=== PATIENT | male | born 1985 | race Caucasian/White ===

== ENCOUNTER → 2020-02-12 16:15 | Outpatient (CLI) | payer OTHER, SELFPAY ==
--- NOTE | 2020-02-12 16:28 | XR_ITS ---
PROCEDURE: XR MULTIPLE SPINE 6+V CLINICAL INDICATION: PAIN Mid and low back pain COMPARISON: No exams were available for comparison FINDINGS: Thoracic spine: 4 views: No fracture or dislocation. No lytic or blastic change. No significant degenerative change. Lumbar spine five views: Minimal lumbar curvature convex right. Mild facet hypertrophic changes are present on the left at L5-S1. There is mild degenerative disc disease at L5-S1. No fracture or dislocation. No lytic or blastic change. IMPRESSION: Negative thoracic spine Mild degenerative disc disease and left-sided facet arthritic change at L5-S1 of the lumbar spine No fracture or other acute anomaly Dictated by: Rehan Yeh MD 02/12/2020 17:05 Electronically signed by Rehan Yeh MD in [place] 02/12/2020 17:05
== END ==
PROVIDERS: PCP Family Medicine; Visit Provider Family Medicine
DX: M54.6 Pain in thoracic spine (principal); M54.5 Low back pain
CPT/HCPCS: 72084

== ENCOUNTER 2020-02-23 07:56 | Outpatient (RCR) | payer OTHER, SELFPAY ==
--- NOTE | 2020-02-23 09:05 | HMH.PTOPEV ---
PT Outpatient Evaluation Rehab PT Outpatient Evaluation Start: 02/23/20 08:47 Freq: Status: Active Protocol: Document 02/23/20 08:49 YOSELIN (Rec: 02/23/20 09:04 CLAUDIARICHARDSON [id number]) Electronically Signed By Fortino Shell, PT 02/23/20 08:49 Outpatient Therapy Subjective History Subjective History Patient is a 34 year old male presenting to outpatient PT with reports of chronic low back and throacic spine pain that has progressively gotten worse over the past 2 years. Pt reports intermittent radiating pain to B buttocks. No specific mechanism of injury to report. Most recent imaging indicates mild lumbar spine degenerative changes, negative thoracic spine. No comoribidities to report. Chief Complaint Pain,Stiff Symptom Type Sharp Symptoms Relieved By Rest/Positioning,Activity Symptoms Aggravated By Standing,Bending/Stooping, Walking,Lifting Prior Functional Limitations None Current Functional Limitations Lifting,Housework,Sleeping, Standing,Sitting,Squatting, Recreation Activity,Walking, Bending/Stooping Symptom Description Constant but Variable Level of pain today (0-10) 6 Pain scale - at its best (0-10) 3 Pain scale - at its worst (0-10) 8 Lumbopelvic Eval Posture Thoracic Spine Posture Standing Position Increased Kyphosis Lumbar Spine Posture Standing Position Neutral Assistive device Assistive Devices None / NA Palapation tenderness bilateral lumbar spinal tenderness Yes: L4/5 S1 3/4 paraspinal tenderness Yes: L 4/5 S1 3/4 Accessory Movement T-spine Vertebrae Accessory Movements [facility] [place] that [place]it Symptoms T10 bilateral T11 bilateral T12 bilateral L4 bilateral L5 bilateral S1 bilateral Range of Motion Lumbar Spine Active Flexion Range of 62 Motion (degrees) Lumbar Spine Active Extension Range of 15 Motion (degrees) Left Lumbar Spine Lateral Flexion Active 14 Range of Motion (degrees) Right Lumbar Spine Lateral Flexion 20 Active Range of Motion (degrees) Lumbar Spine ROM Limitations Soft Tissue Tightness,Bony Restrictio
== END 2020-02-23 07:59 | disposition home or self-care (01) ==
LOC: PT 07:56
PROVIDERS: PCP Family Medicine; Visit Provider Family Medicine
DX: M54.6 Pain in thoracic spine (principal); M54.5 Low back pain
CPT/HCPCS: 97163

== ENCOUNTER 2020-08-19 10:40 | Emergency (ER) | payer OTHER, SELFPAY ==
--- NOTE | 2020-08-19 10:35 | ECG_ITS ---
APPROVED REPORT Exam: Resting ECG HR:68 bpm ECG Measurements Heart Rate 68 AXES AK 160 P 48 QRSd 84 QRS 23 QT 378 T 41 QTc 401 Conclusion Normal sinus rhythm Normal ECG Electronically signed by : Yinka Boswell, 08/20/2020 10:33:56
[2020-08-19 10:41] VITALS: BP 128/88; PULSE 78; RESP 12; TEMP 36.9; O2SAT 95; BMI 27.1
--- NOTE | 2020-08-19 10:46 | XR_ITS ---
PROCEDURE: XR CHEST 2V CLINICAL HISTORY: pain COMPARISON: CR CXR1VP XR chest portable from 03/18/2018 CR XR CHEST 2V from 09/22/2019 FINDINGS: The cardiomediastinal silhouette and pulmonary vascularity are within normal limits. The lungs are clear without infiltrates, suspicious nodules, or pleural effusions. No acute bony abnormalities. IMPRESSION: No acute findings. Dictated by: Dr. Rafy Felton MD 08/19/2020 11:54 Dr. Rafy Felton MD in [place] 08/19/2020 11:54
--- NOTE | 2020-08-19 10:48 | HMH.EDGENADL ---
ED Disposition Clinical Impression: Chest pain Qualifiers: Chest pain type: other chest pain Qualified Code(s): R07.89 - Other chest pain Headache Qualifiers: Headache type: unspecified Headache chronicity pattern: acute headache Intractability: not intractable Qualified Code(s): R51.9 - Headache, unspecified Disposition: Home, Self-Care Condition on Discharge: Good Additional Instructions: Please continue taking [id number] medication such as Tylenol and ibuprofen for headache and follow-up with your PCP for further management. Also follow-up with your PCP in regards to chest pain. Immediate return if any new or worsening symptoms prior to that time. Referrals: PCP,No [Primary Care Provider] - - Critical Care Critical Care Time: No Attestation: On 08/19/20, the high probability of a clinically significant, sudden or life threatening deterioration of the following system(s) required my full and direct attention, intervention and personal management. The time I documented below is in addition to time spent performing reported procedures but includes the following listed in this critical care notation. Medical Decision Making - Medical Records Medical records reviewed: Yes: I reviewed the patient's medical records. - Marcelino Inquiry Pt receiving controlled substance: No Vital Signs: 08/19/20 10:41 08/19/20 11:54 08/19/20 12:30 Temperature 98.4 F Temperature Source Oral Pulse Rate [Left Radial] 78 72 67 Respiratory Rate 12 16 95 H Blood Pressure [Right Arm] 128/88 119/78 121/76 Blood Pressure Mean [Right Arm] 101 91 91 Blood Pressure Source [Right Arm] Automatic Cuff Automatic Cuff Automatic Cuff Blood Pressure Position [Right Arm] Sitting Sitting Sitting 02 Sat by Pulse Oximetry 95 96 97 Oxygen Delivery Method Room Air 08/19/20 14:02 08/19/20 14:47 Temperature Temperature Source Pulse Rate [Left Radial] 60 62 Respiratory Rate 20 18 Blood Pressure [Right Arm] 143/81 H 126/74 Blood Pressure Mean [Right Arm] 101 91 Blood Pressure Source [Right Arm] Automatic Cuff Automatic Cuff Blood Pressure Position [Right Arm] Supine Sitting 02 Sat by Pulse Oximetry 98 94 L Oxygen Delivery Method - Lab Data Lab Results 08/19/20 10:40: WBC 9.6, RBC 5.77, Hgb 18.2 H*, Hct 56.1 H, MCV 97.2 H, MCH 31.6 H, MCHC 32.5, RDW 13.4, Plt Count 319, MPV 9.0, Neut % (Auto) 66.7, Lymph % (Auto) 24.0, Mercer % (Auto) 5.6, Eos % (Auto) 3.0, Baso % (Auto) 0.7, Neut # (Auto) 6.4, Lymph # (Auto) 2.3, Mercer # (Auto) 0.5, Eos # (Auto) 0.3, Baso # (Auto) 0.1 08/19/20 10:40: Sodium 140, Potassium 3.8, Chloride 105, Carbon Dioxide 28, Anion Gap 10.8, BUN 15, Creatinine 1.10, Estimated Creat Clear 109, Estimated GFR 75, Est GFR ( Amer) 91, Glucose 101 H, Calcium 9.8, Troponin I < 0.01 08/19/20 13:50: Troponin I < 0.01 Result diagrams: 08/19/20 10:40 08/19/20 10:40 Orders (Tests/Meds): ED MEDICATIONS Discontinued Medications Generic Name Dose Route Start Last Admin Trade Name Sawyer PRN Reason Stop Dose Admin Acetaminophen 1,000 mg 08/19/20 13:36 08/19/20 13:37 Acetaminophen 500mg Tab PO 08/19/20 13:37 1,000 mg ONCE ONE Administration Ketorolac Tromethamine 30 mg 08/19/20 15:24 08/19/20 15:25 Ketorolac 30mg/Ml Vial IV 08/19/20 15:25 30 mg ONCE ONE Administration ORDERS Category Date Time Status Troponin I Q3H Lab 08/19/20 17:00 Ordered - ECG Data Tracing #1 ECG normal with no acute: arrhythmias, ischemia, conduction abnormalities, chamber hypertrophy Normal Sinus Rhythm: Yes Medical Decision Narrative: Patient 35-year-old male presenting with chest pain and headache. Chest pain is rather atypical and EKG demonstrates no acute ischemia or dysrhythmia noted. Atypical ACS on the differential so cardiac enzyme testing will be performed. Also patient with a vague headache. No red flag symptoms headache but a head CT scan will be obtained this is new onset over t
[2020-08-19 10:55] LABS: Basophils # 0.1 K/mm3 (0-0.2); Basophils % 0.7 % (0.1-2.0); Eosinophils # 0.3 K/mm3 (0.0-0.4); Hematocrit 56.1 % (42.0-52.0); Lymphocytes # 2.3 K/mm3 (0.7-4.5); Mean Corpuscular HGB Conc 32.5 g/dL (31.8-35.4); Mean Corpuscular Hemoglobin 31.6 pg (27.0-31.2); Mean Corpuscular Volume 97.2 fl (80-94); Monocytes # 0.5 K/mm3 (0.1-1.0); Monocytes % 5.6 % (1.7-9.3); Neutrophils # 6.4 K/mm3 (1.8-7.8); Neutrophils % 66.7 % (37.0-80.0); Platelet Count 319 K/mm3 (142-424); Red Blood Count 5.77 M/mm3 (4.60-6.20); Red Cell Distribution Width 13.4 % (11.5-17.5); White Blood Count 9.6 K/mm3 (4.8-10.8)
[2020-08-19 10:56] LABS: Chloride 105 mmol/L (98-107); Sodium 140 mmol/L (136-145)
[2020-08-19 10:57] LABS: Potassium 3.8 mmoL/L (3.5-5.1)
--- NOTE | 2020-08-19 10:58 | CT_ITS ---
PROCEDURE: CT HEAD/BRAIN WO CON CLINICAL INDICATION: new onset headache , some dizziness COMPARISON: No exams were available for comparison TECHNIQUE: Axial images obtained. All CT scans at the facility use one or more dose reduction, viz: automated exposure control, ma/kV adjustment per patient size (including targeted exams where dose is matched to indication, i.e. head), or iterative reconstruction technique. FINDINGS: No midline shift, mass effect, intracranial hemorrhage, hydrocephalus, or extra-axial fluid collection is evident. The calvarium has an unremarkable appearance. No mastoid effusion. Both internal auditory canals appear normal. There is mucoperiosteal thickening in the visualized portions of the maxillary sinuses bilaterally. . There are inflammatory changes of the ethmoid sinuses and there is mild mucoperiosteal thickening of the sphenoid sinus. Mild inflammatory changes are seen in the left frontal sinus. IMPRESSION: No acute intracranial finding findings of mild pansinusitis probably acute and chronic Dictated by: Dr. Rafy Felton MD 08/19/2020 11:29 Dr. Rafy Felton MD in [place] 08/19/2020 11:29
[2020-08-19 10:59] LABS: Blood Urea Nitrogen 15 mg/dl (9-20); Creatinine Clearance Estimated 109 mL/min (50-200); Estimated Glomerular Filt Rate 75 ml/min (>60); GFR (African American) 91 ML/MIN (>60)
[2020-08-19 11:00] LABS: Anion Gap 10.8 mEq/L (5-15); Calcium 9.8 mg/dl (8.4-10.2); Carbon Dioxide 28 mmol/L (22.0-30.0); Glucose 101 mg/dl (74-100)
[2020-08-19 11:29] LABS: Troponin I < 0.01 ng/ml (0.00-0.034)
[2020-08-19 11:44] LABS: Hemoglobin 18.2 g/dL (14.1-18.0)
[2020-08-19 11:54] VITALS: BP 119/78; PULSE 72; RESP 16; O2SAT 96
[2020-08-19 12:30] VITALS: BP 121/76; PULSE 67; RESP 18; O2SAT 97
--- NOTE | 2020-08-19 13:55 | PC.NURSE ---
2nd troponin sent to lab
[2020-08-19 14:02] VITALS: BP 143/81; PULSE 60; RESP 20; O2SAT 98
[2020-08-19 14:47] VITALS: BP 126/74; PULSE 62; RESP 18; O2SAT 94
--- NOTE | 2020-08-19 14:55 | PC.NURSE ---
Called lab to check results of 2nd troponin. Advised it had not been run yet and they would put it on now and it would be about 20 mins.
[2020-08-19 15:11] LABS: Troponin I < 0.01 ng/ml (0.00-0.034)
[2020-08-19 15:40] VITALS: BP 123/75; PULSE 58; RESP 18; TEMP 36.9; O2SAT 96
== END 2020-08-19 15:42 | disposition home or self-care (01) ==
PROVIDERS: Emergency Provider Emergency Medicine
DX: R07.89 Other chest pain (principal); Z88.0 Allergy status to penicillin; F17.210 Nicotine dependence, cigarettes, uncomplicated
CPT/HCPCS: 70450; 71046; 80048; 84484; 85025; 93005; 96374; 99283

== ENCOUNTER → 2020-12-26 08:03 | Outpatient (CLI) | payer OTHER, SELFPAY ==
--- NOTE | 2020-12-26 08:04 | MR_ITS ---
PROCEDURE: MR LUMBAR SPINE WO CON CLINICAL INDICATION: back pain DDD Lbp xyrs. Pain when bending. When sitting for too long, patient states hard time standing up. COMPARISON: CR XR MULTIPLE SPINE 6+V from 02/12/2020 TECHNIQUE: Standard multiplanar multiecho sequences are performed without contrast. 3-D MIP and myelographic images are also rendered and reviewed FINDINGS: Normal alignment. The spinal cord ends at the L1-L2 level. L1-L2: Unremarkable. L2-L3: Unremarkable. L3-L4: Minimal bulging disc L4-5: Unremarkable. L5-S1: Degenerative disc disease with bulging disc eccentric toward the left along with facet and ligamentum hypertrophy causing moderate right foraminal narrowing and severe left-sided foraminal narrowing with some impingement upon the exiting L5 nerve roots at the neural foramina left greater than right. Mild type 2 discogenic changes on the left. There is mild retrolisthesis of L5 of 3 mm. Endplate hypertrophic changes are also present associated with the bulging disc. IMPRESSION: 1. Degenerative disc disease at L5-S1 with bulging disc eccentric toward the left along with facet and ligamentum hypertrophy causing moderate right foraminal narrowing and severe left-sided foraminal narrowing with some impingement upon the exiting L5 nerve roots at the neural foramina left greater than right. Mild type 2 discogenic changes on the left. There is mild retrolisthesis of L5 of 3 mm. Endplate hypertrophic changes are also present associated with the bulging disc 2. No extruded herniated disc or canal stenosis Dictated by: Rehan Yeh MD 12/28/2020 08:56 Rehan Yeh MD in [place] 12/28/2020 08:56
== END ==
PROVIDERS: PCP Emergency Medicine; Visit Provider Emergency Medicine
DX: M51.36 Other intervertebral disc degeneration, lumbar region (principal)
CPT/HCPCS: 72148; 76376

== ENCOUNTER → 2021-02-23 14:18 | Outpatient (POV) | payer OTHER, SELFPAY ==
[2021-02-23 14:53] VITALS: BP 125/92; PULSE 96; RESP 20; O2SAT 95; BMI 28.0
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
== END ==
PROVIDERS: PCP Emergency Medicine; Visit Provider Clinical Nurse Specialist Family Health
DX: M47.896 Other spondylosis, lumbar region (principal); M54.16 Radiculopathy, lumbar region
CPT/HCPCS: 99202; G0463

== ENCOUNTER → 2021-06-16 12:16 | Outpatient (CLI) | payer OTHER, SELFPAY ==
--- NOTE | 2021-06-16 12:22 | XR_ITS ---
PROCEDURE: XR HAND RT MIN 3V CLINICAL INDICATION: hand pain COMPARISON: No exams were available for comparison FINDINGS: No fracture or dislocation. No lytic or blastic change. There is normal mineralization. The joint spaces are well-preserved. No significant degenerative/arthritic changes. No erosive changes evident. Other findings:None. IMPRESSION: No acute findings. Dictated by: Dr. Rafy Felton MD 06/16/2021 13:14 Dr. Rafy Felton MD in [place] 06/16/2021 13:14
== END ==
PROVIDERS: PCP Emergency Medicine; Visit Provider Emergency Medicine
DX: M79.644 Pain in right finger(s) (principal)
CPT/HCPCS: 73130

== ENCOUNTER → 2021-06-22 10:48 | Outpatient (POV) | payer OTHER, SELFPAY ==
[2021-06-22 10:57] VITALS: BP 119/88; PULSE 85; RESP 18; O2SAT 97; BMI 28.8
--- NOTE | 2021-06-22 11:14 | HMH.PAINSOAP ---
[facility] Pain Management SOAP Note Subjective:: Patient is a 36-year-old white male who presents today for follow-up. Patient is being treated in the clinic for degenerative disc disease lumbar spine with lumbar radiculopathy symptoms. At last visit, we did schedule the patient for a lumbar epidural steroid injection L5-S1. Unfortunately, the patient did cancel the appointment. He was also started on amitriptyline. Patient says he did not tolerate the medication and has stopped taking this medication. The patient is having low back pain with radiation into his bilateral lower extremities. He is now having neck pressure and pain as well. He is having numbness and tingling intermittently in his arms and hands as well as his bilateral lower extremities. Patient says when shopping, he is able to stand for approximately 30 minutes maximum before developing severe pain. He is also having bilateral knee pain and joint pain. He feels that much of his pain in his joints is contributed to arthritis. 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 We did discuss Celebrex which she would like to try. Patient says standing or sitting for prolonged periods worsen his pain. Lying flat does give him significant relief. He does rate his pain at a 6 out of 10 today. He has tried physical therapy for more than 6 weeks and continues with home stretching and anti-inflammatories. He has not had any type of injective therapy. Review of Systems General: No recent weight changes, no fever, no sleep disturbances Respiratory: No cough, no shortness of air, no recurring pulmonary infections Cardiovascular/peripheral vascular: No chest pain, no palpitations, no edema, no shortness of breath Gastrointestinal: No new onset incontinence, normal bowel movements reported Genitourinary: No new onset incontinence Musculoskeletal: Low back pain with radiation into bilateral lower extremities with intermittent numbness and tingling, neck pressure and pain with radiation into bilateral upper extremities with intermittent numbness and tingling Psychiatric: [Normal mood/affect] Neurological: [Denies weakness in extremities], [denies balance issues] Objective:: Physical exam General: Alert and oriented x3, no acute distress, pleasant and cooperative Lungs: Respirations even and unlabored, symmetrical chest expansion Eyes: PERRL Musculoskeletal: Flexion and extension of cervical and lumbar [spine] somewhat guarded secondary to pain, [antalgic gait noted] Neurological: Speech clear, no gross sensory deficit Assessment:: Degenerative disc disease lumbar spine with lumbar radiculopathy symptoms Plan:: Patient and I discussed the epidural in great detail again today. At last visit he was scheduled for an epidural steroid injection at L5-S1 and did cancel that appointment. We will schedule him for the lumbar epidural steroid injection at L5-S1, # 1 injection. We will also change him from meloxicam to Celebrex 200 mg 1 tablet p.o. daily. We will see if this helps with his joint pain. He is not on any anticoagulation therapy. We will see him back after his appointment for reevaluation symptoms. Possible side effects of corticosteroids have been discussed with the patient. Risks and benefits of the procedure have been explained to the patient. Patient would like to proceed with the procedure. Patient has been instructed to contact the clinic with any concerns before the next appointment. Dr. Mendez has reviewed this note and agrees with this plan of care. This note was dictated using voice recognition software and make contain errors or omissions. [facility] History I have reviewed the patient's past medical history: Yes Medical History: Denies:: Cancer, Diabetes Mellitus Type 1, Diabetes Mellitus Type 2, MRSA *Have you ever received a pneumonia vaccine?: No *Have you received a flu vaccine this season?: No Other Medical History: Reports: Arthriti
== END ==
PROVIDERS: Visit Provider Clinical Nurse Specialist Family Health
DX: M51.16 Intervertebral disc disorders with radiculopathy, lumbar region (principal)
CPT/HCPCS: 99212; G0463

== ENCOUNTER → 2021-08-16 07:46 | Outpatient (CLI) | payer OTHER, SELFPAY ==
--- NOTE | 2021-08-16 07:54 | XR_ITS ---
PROCEDURE: XR ANKLE WT BEARING LT MIN 3V CLINICAL INDICATION: L Ankle Pain COMPARISON: No exams were available for comparison FINDINGS: There is an oblique lucency along the posterior aspect of the talus on the lateral view. This could be caused by a Mach line from the fibula. A nondisplaced fracture is not excluded. CT may provide further evaluation if there is focal pain at this area. IMPRESSION: Possible nondisplaced fracture of the posterior talus versus Mach line. Dictated by: Rehan Yeh MD 08/16/2021 16:36 Rehan Yeh MD in [place] 08/16/2021 16:36
[2021-08-16 07:59] LABS: Basophils # 0.1 K/mm3 (0-0.2); Basophils % 0.7 % (0.1-2.0); Eosinophils # 0.4 K/mm3 (0.0-0.4); Hematocrit 50.3 % (42.0-52.0); Hemoglobin 16.8 g/dL (14.1-18.0); Lymphocytes % 20.8 % (10-50); Mean Corpuscular HGB Conc 33.4 g/dL (31.8-35.4); Mean Corpuscular Hemoglobin 31.5 pg (27.0-31.2); Mean Corpuscular Volume 94.4 fl (80-94); Mean Platelet Volume 7.7 fl (7.4-10.4); Monocytes # 0.5 K/mm3 (0.1-1.0); Monocytes % 5.6 % (1.7-9.3); Neutrophils # 6.6 K/mm3 (1.8-7.8); Neutrophils % 68.9 % (37.0-80.0); Platelet Count 306 K/mm3 (142-424); Red Blood Count 5.32 M/mm3 (4.60-6.20); Red Cell Distribution Width 13.6 % (11.5-17.5); White Blood Count 9.6 K/mm3 (4.8-10.8)
[2021-08-16 10:06] LABS: 25-OH Vitamin D, Total 28.1 ng/mL (30-100)
[2021-08-16 10:31] LABS: Alanine Aminotransferase 28 U/L (12-78); Albumin Level 4.3 g/dl (3.5-5.0); Albumin/Globulin Ratio 1.5 (1.1-1.8); Alkaline Phosphatase 68 U/L (38-126); Anion Gap 10.5 mEq/L (5-15); Aspartate Amino Transferase 22 U/L (17-59); Bilirubin,Total 0.3 mg/dl (0.2-1.3); Blood Urea Nitrogen 12 mg/dl (9-20); Calcium 9.6 mg/dl (8.4-10.2); Carbon Dioxide 27 mmol/L (22.0-30.0); Chloride 107 mmol/L (98-107); Chol/HDL Ratio 5.6 (1-3.5); Cholesterol 212 mg/dl (140-200); Estimated Glomerular Filt Rate 84 ml/min (>60); GFR (African American) 101 ML/MIN (>60); Globulin 2.8 g/dL (1.3-3.2); Glucose 95 mg/dl (74-100); HDL Cholesterol 38 mg/dl (40-60); Potassium 4.5 mmoL/L (3.5-5.1); Sodium 140 mmol/L (136-145); Total Protein,Serum 7.1 g/dl (6.3-8.2); Triglycerides 113 mg/dl (30-150); VLDL Cholesterol 23 mg/dL (0-40)
[2021-08-16 10:42] LABS: Direct LDL Cholesterol 160.79 mg/dL (100-129)
[2021-08-16 10:48] LABS: T4 (Thyroxine) 10.8 ug/dl (5.53-11.0)
[2021-08-16 11:02] LABS: Thyroid Stimulating Hormone 1.44 uIU/mL (0.465-4.68)
== END ==
PROVIDERS: Visit Provider Nurse Practitioner Family
DX: M19.90 Unspecified osteoarthritis, unspecified site (principal); M25.572 Pain in left ankle and joints of left foot; E55.9 Vitamin D deficiency, unspecified
CPT/HCPCS: 36415; 73610; 80053; 80061; 82306; 84436; 84443; 85025

== ENCOUNTER → 2021-09-01 06:56 | Outpatient (CLI) | payer OTHER, SELFPAY ==
--- NOTE | 2021-09-01 06:57 | CT_ITS ---
PROCEDURE INFORMATION: Exam: CT Left Lower Extremity Without Contrast, Ankle Exam date and time: 09/01/2021 6:57 AM Age: 36 years old Clinical indication: Pain; Ankle; Left; Additional info: Fracture evaluation TECHNIQUE: Imaging protocol: CT of the Left lower extremity without contrast was performed. Exam focused on the ankle. Radiation optimization: All CT scans at this facility use at least one of these dose optimization techniques: automated exposure control; mA and/or kV adjustment per patient size (includes targeted exams where dose is matched to clinical indication); or iterative reconstruction. COMPARISON: CR XR ANKLE WT BEARING LT MIN 3V 08/16/2021 7:59 AM FINDINGS: Bones/joints: A 2 x 3 mm avulsion fracture fragment is present adjacent to the talus in the expected location of the anterior talofibular ligament (series 2/image 219). This small fracture fragment is age indeterminate. There is no fracture involving the posterior talus where a lucency on prior radiographs was artifactual. Tiny osteophytes are present along the anterolateral talus and corresponding level of the fibula suggesting remote low-grade injury to the anterior inferior tibiofibular ligament (series 602/image 21). A benign bone island is incidentally noted in the cuboid. Soft tissues: Moderate soft tissue edema involves the lateral ankle. IMPRESSION: 1. Avulsion fracture involving the talus in the region of the anterior talofibular ligament attachment. 2. No fracture involving the posterior talus where artifact was present on prior radiographs. 3. Remote low-grade injury to the anterior inferior tibiofibular ligament suggested by small marginal osteophytes.
== END ==
PROVIDERS: PCP Nurse Practitioner Family; Visit Provider Podiatrist
DX: M25.572 Pain in left ankle and joints of left foot (principal); S92.102A Unspecified fracture of left talus, initial encounter for closed fracture; T14.8XXA Other injury of unspecified body region, initial encounter
CPT/HCPCS: 73700

== ENCOUNTER → 2021-10-05 15:10 | Outpatient (CLI) | payer OTHER, SELFPAY | PROVIDERS: Visit Provider Nurse Practitioner | DX: Z20.822 Contact with and (suspected) exposure to COVID-19 (principal) | CPT/HCPCS: C9803; U0003; U0005 ==

== ENCOUNTER → 2021-12-27 09:29 | Outpatient (CLI) | payer OTHER, SELFPAY ==
[2021-12-27 18:45] LABS: Amphetamine/Metha Screen,Urine Negative ng/ml (<1000); Barbiturates Screen,Urine Negative ng/ml (<200)
[2021-12-27 18:46] LABS: Benzodiazepines Screen,Urine Negative ng/ml (<200)
[2021-12-27 18:47] LABS: Cannabinoid Screen,Urine Negative ng/ml (<50)
[2021-12-27 18:48] LABS: Cocaine Screen,Urine Negative ng/ml (<300)
[2021-12-27 18:49] LABS: Methadone Screen,Urine Negative ng/ml (<300); Opiate Screen,Urine Positive ng/ml (<300)
[2021-12-27 18:51] LABS: Phencyclidine Screen,Urine Negative ng/ml (<25)
== END ==
PROVIDERS: Visit Provider Emergency Medicine
DX: M54.9 Dorsalgia, unspecified (principal); G89.29 Other chronic pain
CPT/HCPCS: 80305

== ENCOUNTER → 2022-01-04 08:40 | Outpatient (POV) | payer OTHER, SELFPAY ==
[2022-01-04 09:02] VITALS: BP 149/98; PULSE 66; RESP 18; TEMP 36.8; O2SAT 96; BMI 68.3
--- NOTE | 2022-01-04 10:30 | HMH.PAINSOAP ---
[facility] Pain Management SOAP Note Subjective:: Patient is a pleasant 36-year-old male who presents today for follow-up. We are currently treating this patient for degenerative disc disease of lumbar spine with lumbar radiculopathy symptoms, spinal stenosis with neurogenic claudication, bilateral hip pain. We have not seen this patient since June 2021. He states that he has significant low back pain that radiates to bilateral lower extremities. He cannot tolerate any prolonged sitting, standing, and walking. He has to lean forward whenever he shops around the grocery store. When we last saw this patient, we started him on Celebrex 200 mg daily. We also scheduled the patient for a lumbar epidural steroid injection. He said that he had to cancel that injection because he does not like injections. Since we last saw him, he has tried physical therapy with no relief of symptoms. He has also gone to neurosurgery for consult. He was told that he could get surgery on his back but because he is young and he has a young kids, he might have to go back for a revision in 1-2 years. He is currently being managed with gabapentin 300 mg 3 times a day and [place] 5 mg twice a day by Dr. Ledezma. He states that these medications are taking some of the edge off but not helping the family. Rates his pain today as 8 out of 10. He presents today to see if he can schedule a lumbar epidural steroid injection. [facility] #[id number] with an active morphine equivalent of 10. Review of Systems: General: No recent weight changes, no fever, no sleep disturbances Respiratory: No cough, no shortness of air, no recurring pulmonary infections Cardiovascular/peripheral vascular: No chest pain, no palpitations, no edema, no shortness of breath Gastrointestinal: No new onset incontinence, normal bowel movements reported Genitourinary: No new onset incontinence Musculoskeletal: Low back pain Psychiatric: [Normal mood/affect] Neurological: [Denies weakness in extremities], [denies balance issues] Objective:: Physical Exam: General: Alert and oriented x3, no acute distress, pleasant and cooperative, [on room air] Lungs: Respirations even and unlabored, symmetrical chest expansion Eyes: PERRL Musculoskeletal: Flexion and extension of lumbar [spine] somewhat guarded secondary to pain, [antalgic gait noted] Neurological: Speech clear, no gross sensory deficit Assessment:: Degenerative disc disease of lumbar spine with lumbar radiculopathy symptoms Spinal stenosis with neurogenic claudication Plan:: IMAGING: COMPARISON: CR XR MULTIPLE SPINE 6+V from 02/12/2020 TECHNIQUE: Standard multiplanar multiecho sequences are performed without contrast. 3-D MIP and myelographic images are also rendered and reviewed FINDINGS: Normal alignment. The spinal cord ends at the L1-L2 level. L1-L2: Unremarkable. L2-L3: Unremarkable. L3-L4: Minimal bulging disc L4-5: Unremarkable. L5-S1: Degenerative disc disease with bulging disc eccentric toward the left along with facet and ligamentum hypertrophy causing moderate right foraminal narrowing and severe left-sided foraminal narrowing with some impingement upon the exiting L5 nerve roots at the neural foramina left greater than right. Mild type 2 discogenic changes on the left. There is mild retrolisthesis of L5 of 3 mm. Endplate hypertrophic changes are also present associated with the bulging disc. IMPRESSION: 1. Degenerative disc disease at L5-S1 with bulging disc eccentric toward the left along with facet and ligamentum hypertrophy causing moderate right foraminal narrowing and severe left-sided foraminal narrowing with some impingement upon the exiting L5 nerve roots at the neural foramina left greater than right. Mild type 2 discogenic changes on the left. There is mild retrolisthesis of L5 of 3 mm. Endplate hypertrophic changes are also present associated with the bulging disc 2. No extruded herniated
== END ==
PROVIDERS: Visit Provider Student in an Organized Health Care Education/Training Program
DX: M51.16 Intervertebral disc disorders with radiculopathy, lumbar region (principal); M48.00 Spinal stenosis, site unspecified; I73.9 Peripheral vascular disease, unspecified
CPT/HCPCS: 99212; G0463

== ENCOUNTER → 2022-01-04 09:19 | Outpatient (CLI) | payer OTHER, SELFPAY ==
[2022-01-04 10:18] LABS: Chloride 107 mmol/L (98-107); Potassium 4.2 mmoL/L (3.5-5.1); Sodium 140 mmol/L (136-145)
[2022-01-04 10:21] LABS: Alanine Aminotransferase 37 U/L (12-78); Albumin Level 4.1 g/dl (3.5-5.0); Albumin/Globulin Ratio 1.5 (1.1-1.8); Alkaline Phosphatase 71 U/L (38-126); Anion Gap 10.2 mEq/L (5-15); Aspartate Amino Transferase 25 U/L (17-59); Bilirubin,Total 0.4 mg/dl (0.2-1.3); Blood Urea Nitrogen 9 mg/dl (9-20); Calcium 9.6 mg/dl (8.4-10.2); Carbon Dioxide 27 mmol/L (22.0-30.0); Estimated Glomerular Filt Rate 94 ml/min (>60); GFR (African American) 114 ML/MIN (>60); Globulin 2.7 g/dL (1.3-3.2); Glucose 100 mg/dl (74-100); Total Protein,Serum 6.8 g/dl (6.3-8.2)
[2022-01-04 10:27] LABS: C-Reactive Protein 2.3 mg/L (0-4)
[2022-01-04 10:55] LABS: Basophils # 0.1 K/mm3 (0-0.2); Basophils % 0.8 % (0.1-2.0); Eosinophils # 0.5 K/mm3 (0.0-0.4); Eosinophils % 5.5 % (0.1-12.0); Hematocrit 51.3 % (42.0-52.0); Hemoglobin 16.6 g/dL (14.1-18.0); Lymphocytes % 20.5 % (10-50); Mean Corpuscular HGB Conc 32.4 g/dL (31.8-35.4); Mean Corpuscular Hemoglobin 31.1 pg (27.0-31.2); Mean Corpuscular Volume 96.1 fl (80-94); Mean Platelet Volume 7.7 fl (7.4-10.4); Monocytes # 0.7 K/mm3 (0.1-1.0); Monocytes % 6.9 % (1.7-9.3); Neutrophils # 6.4 K/mm3 (1.8-7.8); Neutrophils % 66.3 % (37.0-80.0); Platelet Count 299 K/mm3 (142-424); Red Blood Count 5.34 M/mm3 (4.60-6.20); Red Cell Distribution Width 13.4 % (11.5-17.5); White Blood Count 9.7 K/mm3 (4.8-10.8)
[2022-01-04 13:40] LABS: Erythrocyte Sedimentation Rate 8 mm/hr (0-15)
[2022-01-05 08:17] LABS: RA Latex Turbid. <10.0 IU/mL (<14.0)
[2022-01-05 14:13] LABS: Anti-Centromere B Antibodies <0.2 AI (0.0-0.9); Anti-DNA (DS) Ab Qn <1 IU/mL (0-9); Anti-Jo-1 <0.2 AI (0.0-0.9); Anti-Smith Antibody <0.2 AI (0.0-0.9); Antichromatin Antibodies <0.2 AI (0.0-0.9); Antiscleroderma-70 Antibodies <0.2 AI (0.0-0.9); RNP Antibodies <0.2 AI (0.0-0.9); Sjogren's Anti-SS-A <0.2 AI (0.0-0.9); Sjogren's Anti-SS-B <0.2 AI (0.0-0.9)
[2022-01-05 23:19] LABS: Lupus Reflex Interpretation Comment: (.); PTT-LA 37.7 sec (0.0-51.9); dRVVT 46.5 sec (0.0-47.0)
[2022-01-06 02:43] LABS: Anti-Cyclic Citrullinated Pept 4 units (0-19)
== END ==
PROVIDERS: Visit Provider Emergency Medicine
DX: M54.16 Radiculopathy, lumbar region (principal); G89.29 Other chronic pain; F17.209 Nicotine dependence, unspecified, with unspecified nicotine-induced disorders
CPT/HCPCS: 36415; 80053; 85025; 85613; 85651; 86140; 86200; 86225; 86235; 86431

== ENCOUNTER 2022-01-26 10:35 | Day surgery (SDC) | payer OTHER, SELFPAY ==
[2022-01-26 10:42] VITALS: BP 127/80; BP 130/82; BP 133/87; PULSE 81; PULSE 85; PULSE 92; RESP 18; TEMP 36.9; O2SAT 94; O2SAT 95; O2SAT 96; BMI 31.0
--- NOTE | 2022-01-26 10:52 | HMH.PMPROC ---
- Procedure Date: 01/26/22 Time: 10:52 Anesthesiologist:: Slade Hammer CRNA Complications:: None Pre-procedure Diagnosis:: Degenerative disc disease bar spine. Lumbar radicular symptoms. Lumbar spinal stenosis. Post-procedure Diagnosis:: Same Indications for Procedure:: This patient is a pleasant 36-year-old male who presents to our injection clinic today for his initial lumbar epidural steroid injection at the L5-S1 level. Patient describes his low back pain is constant, dull, aching. Pain increases when standing for any length of time. Patient also complains of bilateral hip and leg radicular symptoms at times. Procedure Details:: Procedure: Lumbar epidural steroid injection under fluoroscopy Informed consent was obtained and the risks and benefits of the procedure were explained to the patient. The patient was taken to the procedure room and noninvasive monitors placed, including noninvasive blood pressure cuff and pulse oximeter. The back was viewed using C-arm Fluoroscopy and prepped using Betadine as a cleansing solution and the L5-S1 interspace was palpated. Skin and subcutaneous tissues were anesthetized using lidocaine 1.5% and a 25-gauge needle. After this, an 18-gauge Touhy epidural needle was placed into the L5-S1 interspace and advanced using fluoroscopic guidance and loss of resistance to air until the epidural space was encountered. After confirmation of needle placement in the epidural space, with dye, a solution containing lidocaine 1.5%, 4 mL and Depo-Medrol 80 mg were incrementally injected into the lumbar epidural space. The patient tolerated the procedure well with no complications. The patient was observed in the Pain Clinic and then discharged home neurologically intact. Plan and Disposition:: Patient was discharged without incident.
[2022-01-26 11:05] VITALS: BP 124/89; PULSE 87; RESP 20; O2SAT 97
== END 2022-01-26 11:05 | disposition home or self-care (01) ==
LOC: SC.PAINP 10:36
PROVIDERS: PCP Emergency Medicine; Visit Provider Nurse Anesthetist, Certified Registered
DX: M51.16 Intervertebral disc disorders with radiculopathy, lumbar region (principal); M48.061 Spinal stenosis, lumbar region without neurogenic claudication; M19.90 Unspecified osteoarthritis, unspecified site; Z88.0 Allergy status to penicillin
CPT/HCPCS: 62323; J1040

== ENCOUNTER → 2022-02-20 10:49 | Outpatient (POV) | payer OTHER, SELFPAY ==
[2022-02-20 11:15] VITALS: BP 142/77; PULSE 65; RESP 18; TEMP 36.8; O2SAT 95; BMI 31.0
--- NOTE | 2022-02-20 11:35 | HMH.PAINSOAP ---
[facility] Pain Management SOAP Note Subjective:: Patient is a pleasant 36-year-old male who returns our clinic after receiving a lumbar epidural steroid injection at the L5-S1 level. Patient reports 1 to 3 days of moderate improvement terms of his low back symptoms. Patient describes his low back pain is constant, dull, aching. Pain increases for 2 to 3 days after strenuous activity like mowing the yard. He rates his pain today 6/10. I discussed in detail with the patient regarding a second injection. He will think about this and get back to us. He currently takes Celebrex 200 mg 1 p.o. daily. Also 300 mg gabapentin 3 times daily and [place] 5 mg twice daily from his PCP. Patient's Marcelino #[id number] has been reviewed and appropriate. Objective:: Patient is awake alert [place] x3. In no acute distress. Flexion-extension lumbar spine somewhat guarded secondary to pain. Deep tendon reflexes upper and lower extremities normal. Motor strength upper and lower extremities normal. There is no gross sensory deficit. Gait is normal. Assessment:: Degenerative disc disease lumbar spine. Lumbar radiculopathy symptoms. Plan:: Patient will reach out to us in the event he wants to attempt a second lumbar epidural steroid injection. I discussed in detail with him the benefit of having 2 injections for efficacy. Otherwise he will continue with his current medication management by PCP. [facility] History Medical History: Denies:: Cancer, Diabetes Mellitus Type 1, Diabetes Mellitus Type 2, MRSA *Have you ever received a pneumonia vaccine?: No *Have you received a flu vaccine this season?: No Other Medical History: Reports: Arthritis Other Surgeries: Yes: No Previous Surgery Amputation: No Fractures: No - *Social History Smoking Status: Current every day smoker Tobacco Type: cigarettes # Packs/Day (cigarettes): 1 Alcohol Intake: never Substance Use Type: denies use *Occupational Status:: other Housing: house Household Members: spouse *Travel in the last 8 weeks: None Family Hx:: Cancer, Heart Attack, Hypertension
== END ==
PROVIDERS: Visit Provider Nurse Anesthetist, Certified Registered
DX: M51.16 Intervertebral disc disorders with radiculopathy, lumbar region (principal); M19.90 Unspecified osteoarthritis, unspecified site; Z72.0 Tobacco use
CPT/HCPCS: 99212; G0463

== ENCOUNTER → 2022-03-08 07:08 | Outpatient (CLI) | payer OTHER, SELFPAY ==
[2022-03-07 17:41] LABS: Amphetamine/Metha Screen,Urine Negative ng/ml (<1000)
[2022-03-07 17:42] LABS: Barbiturates Screen,Urine Negative ng/ml (<200); Benzodiazepines Screen,Urine Negative ng/ml (<200)
[2022-03-07 17:43] LABS: Cannabinoid Screen,Urine Negative ng/ml (<50); Cocaine Screen,Urine Negative ng/ml (<300)
[2022-03-07 17:44] LABS: Methadone Screen,Urine Negative ng/ml (<300)
[2022-03-07 17:45] LABS: Opiate Screen,Urine Positive ng/ml (<300); Phencyclidine Screen,Urine Negative ng/ml (<25)
== END ==
PROVIDERS: PCP Emergency Medicine; Visit Provider Emergency Medicine
DX: M51.36 Other intervertebral disc degeneration, lumbar region (principal)
CPT/HCPCS: 80305

== ENCOUNTER 2022-04-17 10:04 | Emergency (ER) | payer OTHER, SELFPAY ==
--- NOTE | 2022-04-17 10:34 | HMH.EDUTC ---
[facility] Disposition Clinical Impression: Sinusitis Qualifiers: Sinusitis location: unspecified location Chronicity: acute Recurrence: non-recurrent Qualified Code(s): J01.90 - Acute sinusitis, unspecified Disposition: Home, Self-Care Condition on Discharge: Good Instructions: DI for Sinusitis Additional Instructions: Drink plenty of fluids. Take tylenol or ibuprofen for pain or fever. Take the medications as directed. Follow up with your regular doctor. GO TO THE ER FOR ANY WORSENING SYMPTOMS Quarantine until you know the results of your covid-19 test. Notify your school or workplace of your results and follow their instructions regarding return to work/school. Prescriptions: Benzonatate [Benzonatate 100mg cap] 100 mg PO TIDP PRN #30 cap PRN Reason: Cough Transmission Status: Received by [facility] # methylPREDNISolone [Medrol] 4 mg PO DIRECTED 6 Days #21 packet Transmission Status: Received by [facility] # RX: Azithromycin [Z-Mynor 250mg Tab*] 250 mg PO UD DOSE PK #6 tab Transmission Status: Received by [facility] # Referrals: Iain Ledezma MD [Primary Care Provider] - Time of Disposition: 11:01 Medical Decision Making - Medical Records Medical records reviewed: No: I reviewed the patient's medical records. - Marcelino Inquiry Pt receiving controlled substance: No Vital Signs: 04/17/22 10:43 Temperature 98.8 F Temperature Source Oral Pulse Rate [Left] 100 H Respiratory Rate 17 Blood Pressure [Right Arm] 131/77 Blood Pressure Mean [Right Arm] 95 02 Sat by Pulse Oximetry 97 Orders (Tests/Meds): ORDERS Category Date Time Status Covid-19 Nasal PCR ([facility]) Routine Lab 04/17/22 10:34 Received [facility] HPI - General Stated complaint: congestion Time Seen by Provider: 04/17/22 10:34 - History of Present Illness Provider Complaint: He states that for the past 3 days he has had sinus congestion, bilateral ear pain, nonproductive cough and he has had felt achy and bad. He denies any known covid exposure. - Related Data Home Medications Medication Instructions Recorded Confirmed RX: Diclofenac Sodium [Voltaren 2 g TP QID 02/23/21 03/07/22 Arthritis Pain] RX: Lidocaine [Lidocaine 5% patch] 1 patch TP DAILY 02/23/21 03/07/22 RX: Celecoxib 200 mg PO DAILY 01/04/22 03/07/22 RX: Ergocalciferol (Vitamin D2) 50,000 unit PO QWEEK 01/04/22 03/07/22 [Drisdol] oxcarbazepine 300 mg tablet 300 mg PO BID tab 03/07/22 03/07/22 Previous Rx's Medication Instructions Recorded clonazepam 0.5 mg tablet 0.5 mg PO BID PRN #60 tab 05/30/21 tramadol 50 mg tablet 50 mg PO TID PRN #90 tab 08/15/21 gabapentin 600 mg tablet 600 mg PO TID #90 tab 03/07/22 hydrocodone 5 mg-acetaminophen 325 1 tab PO BID #60 tab 03/07/22 mg tablet Benzonatate [Benzonatate 100mg 100 mg PO TIDP PRN #30 cap 04/17/22 cap] RX: Azithromycin [Z-Mynor 250mg Tab*] 250 mg PO UD DOSE PK #6 tab 04/17/22 methylPREDNISolone [Medrol] 4 mg PO DIRECTED 6 Days #21 04/17/22 packet Allergies Allergy/AdvReac Type Severity Reaction Status Date / Time Penicillins [PENICILLINS] Allergy Unknown Verified 04/17/22 10:45 [facility] History - Hepatitis A Screen Attestation statement:: This patient has been screened for Hepatitis A risk factors. I have reviewed the patient's past medical history: Yes Medical History: Denies:: Cancer, Diabetes Mellitus Type 1, Diabetes Mellitus Type 2, MRSA Other Medical History: Reports: Arthritis Other Surgeries: Yes: No Previous Surgery Amputation: No Fractures: No - Social History Smoking Status: Current every day smoker Tobacco Type: cigarettes # Packs/Day (cigarettes): 1 Alcohol Intake: never Substance Use Type: denies use Occupational Status: other Housing: house Household Members: spouse Family Hx:: Cancer, Heart Attack, Hypertension ROS Obtained: Yes All systems reviewed & no additional complaints - Con
[2022-04-17 10:43] VITALS: BP 131/77; PULSE 100; RESP 17; TEMP 37.1; O2SAT 97; BMI 31.3
[2022-04-17 11:13] VITALS: BP 131/77; PULSE 100; RESP 17; TEMP 37.1
== END 2022-04-17 11:14 | disposition home or self-care (01) ==
PROVIDERS: Emergency Provider Nurse Practitioner Family; PCP Emergency Medicine
DX: J01.90 Acute sinusitis, unspecified (principal)
CPT/HCPCS: 99212; C9803; G0463; U0003; U0005

== ENCOUNTER → 2023-04-25 08:49 | Outpatient (POV) | payer BC, OTHER, SELFPAY ==
--- NOTE | 2023-04-25 08:55 | EXP.PAIN.SOA ---
[facility] Pain Management SOAP Note Subjective:: Patient is a pleasant 38-year-old male who presents today for follow-up. We are currently treating the patient for degenerative disc disease of lumbar spine with lumbar radiculopathy symptoms, lumbar facet arthropathy, ligamentum flavum hypertrophy. Today he rates his pain an 8 out of 10. Patient denies any new trauma or injury since his last visit. He states that he continues to have significant pain in his low back with occasional pain into his lower extremities. Patient does state this is an aching, throbbing sensation with worsening pain with increased activity such as bending, twisting or lifting. He does state that the pain interferes with his ability perform activities of daily living such as cooking or cleaning and that it is affecting his sleeping. Patient was previously on Celebrex 200 mg once a day from our office however that he has not had this prescription for some time. Patient states he does have a history of schizophrenia and is on medication. Patient's Marcelino is [phone]. Its been reviewed and appropriate. Review of Systems: General: No recent weight changes, no fever, no sleep disturbances Respiratory: No cough, no shortness of air, no recurring pulmonary infections Cardiovascular/peripheral vascular: No chest pain, no palpitations, no edema, no shortness of breath Gastrointestinal: No new onset incontinence, normal bowel movements reported Genitourinary: No new onset incontinence Musculoskeletal: Low back pain Psychiatric: [Normal mood/affect] Neurological: [Denies weakness in extremities], [denies balance issues] Objective:: Physical Exam: General: Alert and oriented x3, no acute distress, pleasant and cooperative Lungs: Respirations even and unlabored, symmetrical chest expansion Eyes: PERRL Musculoskeletal: Flexion and extension of lumbar [spine] somewhat guarded secondary to pain, [antalgic gait noted] Neurological: Speech clear, no gross sensory deficit ORT score updated with low risk history of bipolar and schizophrenia FINDINGS: Normal alignment. The spinal cord ends at the L1-L2 level. L1-L2: Unremarkable. L2-L3: Unremarkable. L3-L4: Minimal bulging disc L4-5: Unremarkable. L5-S1: Degenerative disc disease with bulging disc eccentric toward the left along with facet and ligamentum hypertrophy causing moderate right foraminal narrowing and severe left-sided foraminal narrowing with some impingement upon the exiting L5 nerve roots at the neural foramina left greater than right. Mild type 2 discogenic changes on the left. There is mild retrolisthesis of L5 of 3 mm. Endplate hypertrophic changes are also present associated with the bulging disc. IMPRESSION: 1. Degenerative disc disease at L5-S1 with bulging disc eccentric toward the left along with facet and ligamentum hypertrophy causing moderate right foraminal narrowing and severe left-sided foraminal narrowing with some impingement upon the exiting L5 nerve roots at the neural foramina left greater than right. Mild type 2 discogenic changes on the left. There is mild retrolisthesis of L5 of 3 mm. Endplate hypertrophic changes are also present associated with the bulging disc 2. No extruded herniated disc or canal stenosis Dictated by: Rehan Yeh MD 12/28/2020 08:56 Rehan Yeh MD in OV 12/28/2020 08:56 Assessment:: Degenerative disc disease of lumbar spine with lumbar radiculopathy symptoms, lumbar facet arthropathy Plan:: Patient continues to experience significant low back pain with limited range of motion. I have discussed with the patient that he may benefit from a medial branch block of his lumbar spine. Risk and benefits were explained to the patient and at this time he would like to wait. I have also discussed with the patient that if he continues to have the low back pain with leg pain that he may be a beneficial candidate of a mild procedure in the future. We will discuss
[2023-04-25 08:58] VITALS: BP 141/88; PULSE 71; RESP 18; O2SAT 95; BMI 31.0
== END | disposition home or self-care (01) ==
PROVIDERS: PCP Emergency Medicine; Visit Provider Nurse Practitioner Family
DX: M51.16 Intervertebral disc disorders with radiculopathy, lumbar region (principal); M47.26 Other spondylosis with radiculopathy, lumbar region
CPT/HCPCS: 99212; G0463

== ENCOUNTER 2023-05-21 09:21 | Emergency (ER) | payer BC, OTHER, SELFPAY ==
[2023-05-21 09:30] VITALS: BP 137/89; PULSE 89; RESP 17; TEMP 36.6; O2SAT 98; BMI 31.9
--- NOTE | 2023-05-21 09:58 | EXP.UTC ---
Discharge Plan Disposition Patient Disposition: Home, Self-Care Condition: Good Prescriptions Prescriptions: No Action oxcarbazepine 300 mg tablet 300 mg PO BID Patient Comments: TAKE 1 TABLET BY MOUTH TWICE DAILY buspirone 10 mg tablet 10 mg PO DAILY Patient Comments: TAKE 1 TABLET BY MOUTH THREE TIMES DAILY aripiprazole 5 mg tablet 5 mg PO DAILY Referrals Follow up/Referrals: Provider,Referral, MD [Primary Care Provider] - See instructions Activity Restrictions/Add. Instructions Additional Instructions/Restrictions: *Monitor Temp, Over the counter Motrin or Tylenol as directed/as needed Tylenol every 4 hours and Motrin every 6 hours (as long as your family doctor has told you that you can take it) for fever or pain. and straight to ER if unable to lower temp less than 101.0 after medication given *Warm salt water gargles may help to soothe the throat *Throat Lozenges? *Warm fluids like tea with honey may help to soothe the throat? *Sleep elevated *Humidifier/Vaporizer Follow up IMMEDIATELY for new or worsening symptoms or no Noticeable improvement over the next 48-72 hours. 911 for difficulty breathing or swallowing You were tested for today for COVID19 your test result should be back in the next 24 hours, you may check your results on the [facility] Portal Clinical Impressions Clinical Impression: Viral syndrome Stand Alone Forms Stand Alone Forms: Work/School Release Instructions Patient Instructions: DI for COVID-19 (Suspected or Confirmed ), Preventing the Spread of Coronavirus Discharge Instructions Discharge ED Provider: Leslie East [facility] HPI General Stated complaint: soa, LARES, diarrhea Mode of Arrival: Ambulatory Source of Information: Patient Limitations: No Limitations Time Seen by Provider: 05/21/23 09:58 Description of Symptoms (Recalled from Triage Doc. by RN): PATIENT C/O HEADACHE, TROUBLE BREATHING, AND DIARRHEA X 2 DAYS HEENT Symptoms (Recalled from RN notes): Yes Resp Symptoms (Recalled from RN notes): Yes Skin Symptoms (Recalled from RN notes): No MS Symptoms (Recalled from RN notes): No Functional Status (Recalled from RN notes): WNL History of Present Illness Provider Complaint: Patient states that for the last couple of days he has been having sinus pain and pressure, drainage in the back of his throat and diarrhea x 2 days States that he felt a little SOA yesterday where he couldnt breath out of his nose but not today States that he hasnt had cough or anything and feeling a little achy all over States that he hasnt been around anyone with COVID that he is aware of but wanted to get tested Related Data Home Medications Medication Instructions Recorded Confirmed oxcarbazepine 300 mg tablet 300 mg PO BID BIPOLAR 03/07/22 05/21/23 buspirone 10 mg tablet 10 mg PO DAILY BIPOLAR 05/04/22 05/21/23 aripiprazole 5 mg tablet 5 mg PO DAILY MOOD 04/25/23 05/21/23 Allergies Allergy/AdvReac Type Severity Reaction Status Date / Time Penicillins [PENICILLINS] Allergy Unknown Verified 10/09/22 09:56 Worker's Comp Is this a Worker's Comp case?: No [facility] Disclaimer: The information contained in this section may have been updated after the patient was seen, as this information can be updated by other users. Social History Smoking Status: Current every day smoker tobacco type: cigarettes packs per day: 1 alcohol intake: never substance use type: denies use current occupational status: employed Travel in the last 8 weeks: None household members: spouse housing: house ROS Obtained: Yes All systems reviewed & no additional complaints except as documented and Yes Systems reviewed as appropriate & no additional complaints except as documented Constitutional Constitutional: Reports system reviewed and no additional complaints, except as do
[2023-05-21 10:05] VITALS: BP 137/89; PULSE 89; RESP 17; TEMP 36.6; O2SAT 98
== END 2023-05-21 10:23 | disposition home or self-care (01) ==
PROVIDERS: Emergency Provider Nurse Practitioner
DX: R19.7 Diarrhea, unspecified (principal); R53.81 Other malaise; B34.9 Viral infection, unspecified; F17.210 Nicotine dependence, cigarettes, uncomplicated
CPT/HCPCS: 99212; 99213; G0463

== ENCOUNTER 2023-09-28 13:51 | Emergency (ER) | payer BC, OTHER, SELFPAY ==
[2023-09-28 14:00] VITALS: BP 131/86; PULSE 84; RESP 19; TEMP 36.9; O2SAT 98; BMI 38.0
--- NOTE | 2023-09-28 14:14 | EXP.UTC ---
Discharge Plan Disposition Patient Disposition: Home, Self-Care Condition: Good Prescriptions Prescriptions: New azithromycin [Zithromax Z-Mynor] 250 mg tablet See Rx Instructions .ROUTE .COMPLEX 5 Days Qty: 6 0RF Rx Instructions: For 250 mg dose pack: take 500 mg today (day 1), then 250 mg for 4 days (days 2-5) methylprednisolone [Medrol (Mynor)] 4 mg tablets,dose pack See Rx Instructions .Route .COMPLEX 6 Days Qty: 21 0RF Rx Instructions: taper pack; Referrals Follow up/Referrals: Provider,Referral, MD [Primary Care Provider] - See instructions Activity Restrictions/Add. Instructions Additional Instructions/Restrictions: Take medications as prescribed Drink extra fluids with and between meals. If you have difficulty drinking, try very small amounts of water or suck on ice chips. ? Avoid fruit juices, as these do not replace minerals and can actually increase diarrhea. ? Children and adults can use sports drinks to replenish electrolytes. Younger children and infants should use products formulated for children, like oral rehydration solutions. ? Eat food in small amounts and let your stomach recover. ? Get lots of rest. You may feel tired or weak. ? No greasy or fried foods for the next 24-48 hours BRAT diet Bananas Rice Apples and [place] ? Make sure to drink plenty of liquids ? Return if needed ? Straight to ER if any life threatening symptoms ? You was given an outpatient order for diarrhea panel, please collect specimen and bring back to outpatient lab then call back to the [facility] or follow up with family doctor for results ? Follow up with family doctor in the next 48-72 hours if no improvement or any worsening of symptoms Clinical Impressions Clinical Impression: Sinusitis Qualifiers: Sinusitis location: unspecified location Chronicity: unspecified Qualified Code(s): J32.9 - Chronic sinusitis, unspecified Stand Alone Forms Stand Alone Forms: Work/School Release Instructions Patient Instructions: DI for Sinusitis, Diarrhea Discharge ED Provider: Leslie East [facility] [place], [place] HPI General Stated complaint: diarrhea, fever Mode of Arrival: Ambulatory Source of Information: Patient Limitations: No Limitations Time Seen by Provider: 09/28/23 14:14 Description of Symptoms (Recalled from Triage Doc. by RN): PATIENT C/O DIARRHEA AND DARK GREEN SINUS DRAINAGE X 2 DAYS HEENT Symptoms (Recalled from RN notes): Yes Resp Symptoms (Recalled from RN notes): No Skin Symptoms (Recalled from RN notes): No MS Symptoms (Recalled from RN notes): No Functional Status (Recalled from RN notes): WNL History of Present Illness Provider Complaint: Patient states that he was having sinus congestion and drainage that has got worse over the last couple of days that is dark greenish colored and states that he has been having diarrhea not sure if it is from the drainage or something else States that today he was having pressure behind his eyes and still having some diarrhea so he came in Related Data Previous Rx's Medication Instructions Recorded azithromycin 250 mg tablet See Rx Instructions PO .COMPLEX 5 09/28/23 (Zithromax Z-Mynor) days #6 tabs methylprednisolone 4 mg tablets in See Rx Instructions .Route 09/28/23 a dose pack (Medrol (Mynor)) .COMPLEX 6 days #21 tabs Allergies Allergy/AdvReac Type Severity Reaction Status Date / Time Penicillins [PENICILLINS] Allergy Unknown Verified 10/09/22 09:56 Worker's Comp Is this a Worker's Comp case?: No [facility] Disclaimer: The information contained in this section may have been updated after the patient was seen, as this information can be updated by other users. Medical History (Updated 09/28/23 @ 14:22 by Leslie East APRN) Anxiety Depression Social History Smoking Status: Current every day smoker tobacco type: cigarettes packs per day: 1 alcohol intake: never substance use type: denies use current occupational status: employed Travel in the last 8 weeks: None household members: spouse housing: house ROS Obtained: Yes All systems reviewed & no additional complaints except as documented and Yes Systems reviewed as appropriate & no additional complaints except as documented Constitutional Constitutional: Reports system reviewed and no additional complaints, except as documented, Reports as per HPI, Reports body ache and Reports headache(s) ENT Ears, Nose, Mouth, and Throat: Reports system reviewed and no additional complaints, except as documented, Reports as per HPI, Reports headache(s), Reports sinus pain and Reports sinus pressure Cardiovascular Cardiovascular: Reports system reviewed and no additional complaints, except as documented and Reports as per HPI Respiratory Respiratory: Reports system reviewed and no additional complaints, except as documented and Reports as per HPI Gastrointestinal Gastrointestingal: Reports system reviewed and no additional complaints, except as documented, as per HPI and diarrhea; Denies abdominal pain, cramping, nausea or vomiting Neurologic Neurologic: Reports headache(s) Physical Exam General General appearance: alert and in no apparent distress ENT ENT exam: Present mucous membranes moist Expanded ENT Exam Nose exam: Present sinus tenderness Throat exam: Present other (Pharyngeal erythema noted with PND) Respiratory Respiratory exam: Present normal lung sounds bilaterally; Absent respiratory distress or wheezes Cardiovascular Cardiovascular exam: Present regular rate, normal rhythm and normal heart sounds Neurological Exam Neurological exam: Present alert, oriented X3 and normal gait Medical Decision Making Marcelino Inquiry Pt receiving controlled substance: No Marcelino was queried for this patient: No Vital Signs: 09/28/23 14:00 Temperature 98.5 F Temperature Source Oral Pulse Rate [Right Brachial] 84 Respiratory Rate 19 Blood Pressure [Right Arm] 131/86 Blood Pressure Mean [Right Arm] 101 Blood Pressure Source [Right Arm] Automatic Cuff Blood Pressure Position [Right Arm] Sitting 02 Sat by Pulse Oximetry 98 Oxygen Delivery Method Room Air Orders (Tests/Meds): ORDERS Category Date Time Status Covid-19 Nasal PCR ([facility]) Routine Lab 09/28/23 14:13 Ordered
[2023-09-28 14:15] VITALS: BP 131/86; PULSE 84; RESP 19; TEMP 36.9; O2SAT 98
== END 2023-09-28 14:34 | disposition home or self-care (01) ==
PROVIDERS: Emergency Provider Nurse Practitioner
DX: J01.90 Acute sinusitis, unspecified (principal); R51.9 Headache, unspecified; R09.81 Nasal congestion; R09.82 Postnasal drip; R19.7 Diarrhea, unspecified; F17.210 Nicotine dependence, cigarettes, uncomplicated
CPT/HCPCS: 87635; 99212; 99214; G0463

== ENCOUNTER 2023-12-30 18:00 | Outpatient (CLI) | payer OTHER, SELFPAY ==
[2023-12-30 18:56] LABS: Basophils # 0.1 K/mm3 (0-0.2); Eosinophils # 0.4 K/mm3 (0.0-0.4); Eosinophils % 3.5 % (0.1-12.0); Hematocrit 51.3 % (42.0-52.0); Hemoglobin 16.7 g/dL (14.1-18.0); Lymphocytes # 2.3 K/mm3 (0.7-4.5); Lymphocytes % 23.5 % (10-50); Mean Corpuscular HGB Conc 32.6 g/dL (31.8-35.4); Mean Corpuscular Hemoglobin 31.8 pg (27.0-31.2); Mean Corpuscular Volume 97.6 fl (80-94); Mean Platelet Volume 8.9 fl (7.4-10.4); Monocytes # 0.6 K/mm3 (0.1-1.0); Neutrophils # 6.5 K/mm3 (1.8-7.8); Platelet Count 289 K/mm3 (142-424); Red Blood Count 5.25 M/mm3 (4.60-6.20); Red Cell Distribution Width 13.8 % (11.5-17.5); White Blood Count 9.8 K/mm3 (4.8-10.8)
[2023-12-30 19:58] LABS: Alanine Aminotransferase 22 U/L (12-78); Albumin Level 4.3 g/dl (3.5-5.0); Albumin/Globulin Ratio 1.4 (1.1-1.8); Alkaline Phosphatase 89 U/L (38-126); Anion Gap 11.2 mEq/L (5-15); Aspartate Amino Transferase 24 U/L (17-59); Bilirubin,Total 0.5 mg/dl (0.2-1.3); Blood Urea Nitrogen 11 mg/dl (9-20); Calcium 9.9 mg/dl (8.4-10.2); Carbon Dioxide 23 mmol/L (22.0-30.0); Chloride 109 mmol/L (98-107); Chol/HDL Ratio 7.5 (1-3.5); Cholesterol 217 mg/dl (140-200); Estimated Glomerular Filt Rate 93 ml/min (>60); GFR (African American) 113 ML/MIN (>60); Globulin 3.1 g/dL (1.3-3.2); Glucose 86 mg/dl (74-100); HDL Cholesterol 29 mg/dl (40-60); Potassium 4.2 mmoL/L (3.5-5.1); Sodium 139 mmol/L (136-145); Total Protein,Serum 7.4 g/dl (6.3-8.2); Triglycerides 160 mg/dl (30-150); VLDL Cholesterol 32 mg/dL (0-40)
[2023-12-30 20:08] LABS: Direct LDL Cholesterol 135.99 mg/dL (100-129)
[2023-12-30 20:31] LABS: Prostate Specific Ag Screen 0.7 ng/ml (0.0-4.0); Thyroid Stimulating Hormone 0.98 uIU/mL (0.465-4.68)
[2023-12-31 11:34] LABS: Vitamin B12 393 pg/mL (239-931)
== END 2023-12-30 23:59 | disposition home or self-care (01) ==
LOC: LAB.DROPOF 12-31 09:01
PROVIDERS: Visit Provider Family Medicine
DX: M47.816 Spondylosis without myelopathy or radiculopathy, lumbar region (principal); D75.89 Other specified diseases of blood and blood-forming organs; K04.7 Periapical abscess without sinus; E55.9 Vitamin D deficiency, unspecified; E78.00 Pure hypercholesterolemia, unspecified; E78.1 Pure hyperglyceridemia; F17.210 Nicotine dependence, cigarettes, uncomplicated; Z12.5 Encounter for screening for malignant neoplasm of prostate
CPT/HCPCS: 80053; 80061; 82306; 82607; 84443; 85025; G0103

== ENCOUNTER 2024-04-29 09:53 | Outpatient (CLI) | payer OTHER, SELFPAY ==
[2024-04-29 18:23] LABS: Influenza A, PCR Not Detected (NotDetected); Influenza B, PCR Not Detected (NotDetected)
[2024-04-29 19:00] LABS: Basophils # 0.1 K/mm3 (0-0.2); Basophils % 0.7 % (0.1-2.0); Eosinophils # 0.2 K/mm3 (0.0-0.4); Eosinophils % 2.1 % (0.1-12.0); Hematocrit 55.1 % (42.0-52.0); Hemoglobin 16.3 g/dL (14.1-18.0); Lymphocytes # 0.6 K/mm3 (0.7-4.5); Lymphocytes % 7.8 % (10-50); Mean Corpuscular HGB Conc 29.6 g/dL (31.8-35.4); Mean Corpuscular Hemoglobin 30.4 pg (27.0-31.2); Mean Corpuscular Volume 102.4 fl (80-94); Mean Platelet Volume 8.9 fl (7.4-10.4); Monocytes # 0.7 K/mm3 (0.1-1.0); Monocytes % 8.6 % (1.7-9.3); Neutrophils # 6.4 K/mm3 (1.8-7.8); Neutrophils % 80.7 % (37.0-80.0); Platelet Count 252 K/mm3 (142-424); Red Blood Count 5.38 M/mm3 (4.60-6.20); Red Cell Distribution Width 14.2 % (11.5-17.5); White Blood Count 7.9 K/mm3 (4.8-10.8)
[2024-04-29 19:31] LABS: Alanine Aminotransferase 48 U/L (12-78); Albumin Level 4.2 g/dl (3.5-5.0); Albumin/Globulin Ratio 1.3 (1.1-1.8); Alkaline Phosphatase 87 U/L (38-126); Anion Gap 13.5 mEq/L (5-15); Aspartate Amino Transferase 29 U/L (17-59); Bilirubin,Indirect 0.4 mg/dL (0.0-0.9); Bilirubin,Total 0.4 mg/dl (0.2-1.3); Bilirubin,Unconjugated 0.4 mg/dL (0.0-1.1); Blood Urea Nitrogen 9 mg/dl (9-20); Calcium 9.3 mg/dl (8.4-10.2); Carbon Dioxide 25 mmol/L (22.0-30.0); Chloride 106 mmol/L (98-107); Chol/HDL Ratio 4.5 (1-3.5); Cholesterol 150 mg/dl (140-200); Estimated Glomerular Filt Rate 82 ml/min (>60); GFR (African American) 100 ML/MIN (>60); Globulin 3.2 g/dL (1.3-3.2); Glucose 71 mg/dl (74-100); HDL Cholesterol 33 mg/dl (40-60); Potassium 4.5 mmoL/L (3.5-5.1); Sodium 140 mmol/L (136-145); Total Protein,Serum 7.4 g/dl (6.3-8.2); Triglycerides 158 mg/dl (30-150); VLDL Cholesterol 32 mg/dL (0-40)
[2024-04-29 19:40] LABS: 25-OH Vitamin D, Total 47.7 ng/mL (30-100)
[2024-04-29 19:43] LABS: Direct LDL Cholesterol 87.63 mg/dL (100-129)
[2024-04-29 21:12] LABS: Coronavirus 19, PCR Detected (NotDetected)
== END 2024-04-29 23:59 | disposition home or self-care (01) ==
LOC: LAB.DROPOF 04-30 09:53
PROVIDERS: PCP Family Medicine; Visit Provider Family Medicine
DX: Z00.00 Encounter for general adult medical examination without abnormal findings (principal); R53.83 Other fatigue; R40.0 Somnolence
CPT/HCPCS: 80053; 80061; 80076; 82306; 85025; 87636

== ENCOUNTER 2024-05-25 08:39 | Outpatient (POV) | payer OTHER, SELFPAY ==
[2024-05-25 09:07] VITALS: BP 130/95; PULSE 93; RESP 18; O2SAT 94; BMI 29.5
--- NOTE | 2024-05-25 09:23 | EXP.PAIN.SOA ---
[facility] Disclaimer: The information contained in this section may have been updated after the patient was seen, as this information can be updated by other users. Medical History (Updated 04/29/24 @ 13:38 by Kirsten Guzmán APRN) Chronic GERD Gastroenteritis Abscessed tooth Depression Anxiety Social History (Reviewed 04/29/24 @ 10:04 by Yohana Nuno [facility]) Smoking Status: Current every day smoker tobacco type: cigarettes packs per day: 1 alcohol intake: never substance use type: denies use current occupational status: employed Travel in the last 8 weeks: None household members: spouse housing: house PM Subjective & Objective Subjective Subjective:: Patient is a pleasant 39-year-old male who presents today for medication refill and follow-up. Today he rates his pain a 6 out of 10. Patient denies any new injury or trauma. He does state that he still continues to have pain throughout his low back and will occasionally have some symptoms into his legs but it is not that often. Patient is currently managed with Celebrex 200 mg once a day from our office and tizanidine 4 mg at bedtime. He denies any side effects from this medication. His Marcelino has been reviewed and is appropriate. Review of Systems: General: No recent weight changes, no fever, no sleep disturbances Respiratory: No cough, no shortness of air, no recurring pulmonary infections Cardiovascular/peripheral vascular: No chest pain, no palpitations, no edema, no shortness of breath Gastrointestinal: No new onset incontinence, normal bowel movements reported Genitourinary: No new onset incontinence Musculoskeletal: Low back pain Psychiatric: [Normal mood/affect] Neurological: [Denies weakness in extremities], [denies balance issues] Injection history: LESI L5-S1 01/26/2022 Pain at rest (0-10 scale): 6 Objective Objective:: Physical Exam: General: Alert and oriented x3, no acute distress, pleasant and cooperative Lungs: Respirations even and unlabored, symmetrical chest expansion Eyes: PERRL Musculoskeletal: Flexion and extension of lumbar [spine] somewhat guarded secondary to pain, [antalgic gait noted] Neurological: Speech clear, no gross sensory deficit Has patient had previous pain injection?: No Conservative treatment options previously tried: Home exercise plan Length of treatment: Longer than 6 weeks Meds Home Medications and Allergies Home Medications ?Medication ?Instructions ?Recorded ?Confirmed ?Type atorvastatin 10 mg tablet (Lipitor) 10 mg PO HS #90 tabs 04/29/24 04/29/24 Rx ergocalciferol (vitamin D2) 1,250 See Rx Instructions .Route 04/29/24 04/29/24 Rx mcg (50,000 unit) capsule .COMPLEX #5 caps New Prescriptions to Start Prescriptions: Allergies Allergy/AdvReac Type Severity Reaction Status Date / Time Penicillins [PENICILLINS] Allergy Unknown Verified 04/29/24 10:04 Assessment and Plan *Assessment and plan (1) DDD (degenerative disc disease), lumbar: Status: Acute Category: Medical Code(s): M51.36 - Other intervertebral disc degeneration, lumbar region Plan Patient is still experiencing significant pain throughout his low back. I did discuss with the patient that I do believe he would benefit from lumbar medial branch block as well as possible ablation in the future. We will follow-up with this at future visits. I will send in a 3-month supply of his Celebrex and tizanidine. Patient will return to clinic in 3 months for reevaluation of symptoms and plan of care. Patient has been instructed to contact the clinic with any concerns before the next appointment. Dr. Mendez has reviewed this note and agrees with this plan of care. This note was dictated using voice recognition software and make contain errors or omissions. All injections are used with Lidocaine or Bupivacaine and Depo Medrol.
== END 2024-05-25 23:59 | disposition home or self-care (01) ==
PROVIDERS: PCP Nurse Practitioner Family; Visit Provider Nurse Practitioner Family
DX: M51.36 Other intervertebral disc degeneration, lumbar region (principal); F17.210 Nicotine dependence, cigarettes, uncomplicated
CPT/HCPCS: 99212; G0463

== ENCOUNTER 2024-08-21 10:15 | Emergency (ER) | payer OTHER, SELFPAY ==
--- NOTE | 2024-08-21 11:14 | ED_ITS ---
Discharge Plan Disposition Patient Disposition: Home, Self-Care Condition: Good Prescriptions Prescriptions: New azithromycin [Zithromax] 250 mg tablet 250 mg PO UD DOSE PK Qty: 6 0RF Rx Instructions: Take two (2) tablets today, then one (1) tablet days #2 thru #5 [id number] [Bromfed DM] 2-30-10 mg/5 mL Syrup 5 ml PO Q6H PRN (Reason: Cough) Qty: 240 0RF ondansetron 4 mg Tablet,Disintegrating 4 mg PO Q8H PRN (Reason: Nausea) Qty: 12 0RF No Action atorvastatin [Lipitor] 10 mg tablet 10 mg PO HS Qty: 90 2RF ergocalciferol (vitamin D2) 1,250 mcg (50,000 unit) capsule See Rx Instructions .ROUTE .COMPLEX Qty: 5 6RF Dose Instruction: Take 1 capsule by mouth once a week Rx Instructions: Take 1 capsule by mouth once a week celecoxib [Celebrex] 200 mg capsule 200 mg PO DAILY Qty: 30 2RF tizanidine [Zanaflex] 4 mg tablet 4 mg PO HS Qty: 30 2RF Referrals Follow up/Referrals: Morena Portillo APRN [Primary Care Provider] - See instructions Activity Restrictions/Add. Instructions Additional Instructions/Restrictions: Drink plenty of fluids. Take tylenol or ibuprofen for pain or fever. Take the medications as directed. Follow up with your regular doctor. GO TO THE ER FOR ANY WORSENING SYMPTOMS Clinical Impressions Clinical Impression: Gastroenteritis, Sinusitis Stand Alone Forms Stand Alone Forms: Work/School Release Instructions Patient Instructions: Sinusitis, DI for Sinusitis, Ondansetron Print Language Print Language: Montserratian Discharge ED Provider: Herman Bauman [facility] HPI General Stated complaint: V/D, fever Time Seen by Provider: 08/21/24 11:12 Related Data Previous Rx's ?Medication ?Instructions ?Recorded atorvastatin 10 mg tablet (Lipitor) 10 mg PO HS #90 tabs 04/29/24 ergocalciferol (vitamin D2) 1,250 See Rx Instructions .Route 04/29/24 mcg (50,000 unit) capsule .COMPLEX #5 caps celecoxib 200 mg capsule (Celebrex) 200 mg PO DAILY #30 caps 05/25/24 tizanidine 4 mg tablet (Zanaflex) 4 mg PO HS #30 tabs 05/25/24 azithromycin 250 mg tablet 250 mg PO UD DOSE PK #6 tabs 08/21/24 (Zithromax) [id number]-[id number]-IO 5 ml PO Q6H PRN Cough #240 mL 08/21/24 2 mg-30 mg-10 mg/5 mL oral syrup (Bromfed DM) ondansetron 4 mg disintegrating 4 mg PO Q8H PRN Nausea #12 tabs 08/21/24 tablet Allergies Allergy/AdvReac Type Severity Reaction Status Date / Time Penicillins (PENICILLINS) Allergy Unknown Verified 04/29/24 10:04 [facility] Disclaimer: The information contained in this section may have been updated after the patient was seen, as this information can be updated by other users. Medical History (Updated 08/21/24 @ 11:41 by Herman Bauman APRN) Chronic GERD Gastroenteritis Abscessed tooth Depression Anxiety Social History Smoking Status: Current every day smoker tobacco type: cigarettes packs per day: 1 alcohol intake: never substance use type: denies use current occupational status: employed Travel in the last 8 weeks: None household members: spouse housing: house Have you lived/traveled outside [place] in past 30 days?: No Contact w/someone who lives/traveled outside US past 30 days?: No Exposure to someone with infectious disease in past 14 days?: No Do you have a fever (greater than 100.4 F or 38 C)?: No Have you tested positive for COVID-19: No Exposed to someone with COVID-19 in past 14 days?: No Do you have a sore throat?: No Do you have a cough?: No Do you have any weakness?: No Do you have any diarrhea?: Yes Are you experiencing any unusual bleeding?: No Do you have any muscle aches/pain?: No Do you have any abdominal pain?: No Are you experiencing loss of taste or smell?: No ROS Obtained: Yes All systems reviewed & no additional complaints except as documented Constitutional Constitutional: Denies chills, Denies fever(s) and Reports poor appetite ENT Ears, Nose, Mouth, and Throat: Reports as per HPI, Denies dizziness and Denies sore throat Cardiovascular Cardiovascular: Denies dyspnea Respiratory Respiratory: Denies chest congestion, Denies cough and Denies dyspnea Gastrointestinal Gastrointestingal: Reports as per HPI, diarrhea, nausea and vomiting; Denies abdominal pain Musculoskeletal Musculoskeletal: Denies arthralgias Integumentary/Breasts Skin/Breast: Denies rash Neurologic Neurologic: Denies dizziness Physical Exam General General appearance: alert and in no apparent distress Head Head exam: atraumatic and normocephalic Eye Eye exam: Present normal appearance, PERRL and EOMI ENT ENT exam: Present normal exam, normal oropharynx, mucous membranes moist, TM's normal bilaterally and normal external ear exam Neck Neck exam: Present normal inspection, full ROM and trachea midline; Absent tenderness, meningismus or lymphadenopathy Chest Chest inspection: Present normal inspection and symmetric chest wall rise; Absent tenderness, rash or abscess Respiratory Respiratory exam: Present normal lung sounds bilaterally; Absent respiratory distress, wheezes or stridor Cardiovascular Cardiovascular exam: Present regular rate and normal rhythm; Absent irregular rhythm, systolic murmur, diastolic murmur or JVD Abdominal Exam Abdominal exam: Present soft and hyperactive bowel sounds; Absent distention, tenderness, guarding, rebound, rigidity, psoas sign, obturator sign, heel tap sign, Garcia's sign, Rovsing's sign or tenderness at McBurney's Point Extremities Exam Extremities exam: Present normal inspection and full ROM; Absent tenderness Back Exam Back exam: Present normal inspection and full ROM; Absent tenderness, CVA tenderness (R) or CVA tenderness (L) Neurological Exam Neurological exam: Present alert, oriented X3 and CN II-XII intact Psychiatric Psychiatric exam: Present normal affect and normal mood Skin Skin exam: Present warm, dry, intact and normal color Lymphatic Lymphatic Findings: no adenopathy Medical Decision Making Medical Records Medical records reviewed: No I reviewed the patient's medical records. Screening: Per USPSTF and CDC recommendations, given the prevalence of disease in our region, it is our hospital?s policy to screen for HIV and viral Hepatitis for all patients aged 18 and over and those with ongoing risk factors. Marcelino Inquiry Pt receiving controlled substance: No
[2024-08-21 11:20] VITALS: BP 129/91; PULSE 78; RESP 20; TEMP 36.9; O2SAT 94; BMI 31.1
[2024-08-21 11:45] VITALS: BP 129/91; PULSE 78; RESP 20; TEMP 36.9
== END 2024-08-21 11:46 | disposition home or self-care (01) ==
PROVIDERS: Emergency Provider Nurse Practitioner Family; PCP Nurse Practitioner Family
DX: R50.9 Fever, unspecified (principal); R19.7 Diarrhea, unspecified; R11.2 Nausea with vomiting, unspecified; R63.8 Other symptoms and signs concerning food and fluid intake; J32.9 Chronic sinusitis, unspecified; K52.9 Noninfective gastroenteritis and colitis, unspecified
CPT/HCPCS: 99212; G0381

== ENCOUNTER 2024-08-24 08:50 | Outpatient (POV) | payer OTHER, SELFPAY ==
--- NOTE | 2024-08-24 09:44 | A.OFFVIS_ITS ---
[facility] Disclaimer: The information contained in this section may have been updated after the patient was seen, as this information can be updated by other users. Medical History (Updated 08/24/24 @ 09:46 by Keshia Pierson APRN) Chronic GERD Gastroenteritis Abscessed tooth Depression Anxiety Social History Smoking Status: Current every day smoker tobacco type: cigarettes packs per day: 1 alcohol intake: never substance use type: denies use current occupational status: employed Travel in the last 8 weeks: None household members: spouse housing: house PM Subjective & Objective Subjective Subjective:: Patient is a pleasant 39-year-old male who presents today for 3-month follow-up and medication refill. Today he rates his pain a 7 out of 10. He denies any new injury or trauma from his last appointment. He does state that he has had some neck pain going on and is unsure if the weather is playing a role or if he slept funny. Patient does state that that he is currently trying to get an at home sleep study done however is still waiting to hear from insurance. Patient is currently managed with Celebrex 200 mg once a day from our office along with tizanidine 4 mg at bedtime. He denies any side effects from this medication however does state that he does not really even notice a difference with the tizanidine. His Marcelino has been reviewed and is appropriate. Review of Systems: General: No recent weight changes, no fever, no sleep disturbances Respiratory: No cough, no shortness of air, no recurring pulmonary infections Cardiovascular/peripheral vascular: No chest pain, no palpitations, no edema, no shortness of breath Gastrointestinal: No new onset incontinence, normal bowel movements reported Genitourinary: No new onset incontinence Musculoskeletal: Low back pain, neck pain Psychiatric: [Normal mood/affect] Neurological: [Denies weakness in extremities], [denies balance issues] Pain at rest (0-10 scale): 7 Objective Objective:: Physical Exam: General: Alert and oriented x3, no acute distress, pleasant and cooperative Lungs: Respirations even and unlabored, symmetrical chest expansion Eyes: PERRL Musculoskeletal: Flexion and extension of lumbar [spine] somewhat guarded secondary to pain Neurological: Speech clear, no gross sensory deficit Has patient had previous pain injection?: No Conservative treatment options previously tried: Home exercise plan Length of treatment: Longer than 12 weeks Meds Home Medications and Allergies Home Medications ?Medication ?Instructions ?Recorded ?Confirmed ?Type atorvastatin 10 mg tablet (Lipitor) 10 mg PO HS #90 tabs 04/29/24 08/21/24 Rx ergocalciferol (vitamin D2) 1,250 See Rx Instructions .Route 04/29/24 08/21/24 Rx mcg (50,000 unit) capsule .COMPLEX #5 caps celecoxib 200 mg capsule (Celebrex) 200 mg PO DAILY #30 caps 05/25/24 Rx tizanidine 4 mg tablet (Zanaflex) 4 mg PO HS #30 tabs 05/25/24 08/21/24 Rx azithromycin 250 mg tablet 250 mg PO UD DOSE PK #6 tabs 08/21/24 Rx (Zithromax) pwtucdxpywdxiyi-jehmttjcczszftz-WO 5 ml PO Q6H PRN Cough #240 mL 08/21/24 Rx 2 mg-30 mg-10 mg/5 mL oral syrup (Bromfed DM) ondansetron 4 mg disintegrating 4 mg PO Q8H PRN Nausea #12 tabs 08/21/24 Rx tablet New Prescriptions to Start Prescriptions: Allergies Allergy/AdvReac Type Severity Reaction Status Date / Time Penicillins (PENICILLINS) Allergy Unknown Verified 04/29/24 10:04 Assessment and Plan *Assessment and plan (1) Neck pain: Status: Acute Category: Medical Code(s): M54.2 - Cervicalgia (2) Degenerative joint disease (DJD) of lumbar spine: Status: Chronic Qualifiers: Spinal osteoarthritis complication: unspecified spinal osteoarthritis Qualified Code(s): M47.816 - Spondylosis without myelopathy or radiculopathy, lumbar region Category: Medical Code(s): M47.816 - Spondylosis without myelopathy or radiculopathy, lumbar region (3) Lumbar radiculopathy: Status: Chronic Category: Medical Code(s): M54.16 - Radiculopathy, lumbar region Plan I did still discuss with patient that he may benefit from injection therapy however patient does state that he has tried injections in the past for his low back and that it was always very temporary. Patient is trying to do conservative treatment and hold off having to have any type of more invasive procedures like surgery. I will send in 3-month supply of his Celebrex and change his tizanidine to methocarbamol 500 mg 3 times daily as needed. Patient was counseled to contact our office if the methocarbamol does help better than the tizanidine and would like additional refills between now and his next appointment. Patient agrees with this plan of care. Patient will return to clinic in 3 months for reevaluation of symptoms and plan of care. I will also order the patient compounded cream. Patient has been instructed to contact the clinic with any concerns before the next appointment. Dr. Mendez has reviewed this note and agrees with this plan of care. This note was dictated using voice recognition software and make contain errors or omissions. All injections are used with Lidocaine, Bupivacaine and Depo Medrol. Occasionally urine drug screen is needed to verify patient's compliance with our office pain contract. This is ordered based off specific treatments related to chronic pain with the potential to abuse certain medications.
[2024-08-24 09:56] VITALS: BP 141/78; PULSE 94; RESP 16; O2SAT 97; BMI 30.4
== END 2024-08-24 23:59 | disposition home or self-care (01) ==
PROVIDERS: PCP Nurse Practitioner Family; Visit Provider Nurse Practitioner Family
DX: M54.2 Cervicalgia (principal); M47.26 Other spondylosis with radiculopathy, lumbar region; F17.210 Nicotine dependence, cigarettes, uncomplicated
CPT/HCPCS: 99212; G0463

== ENCOUNTER 2024-12-03 09:40 | Outpatient (POV) | payer OTHER, SELFPAY ==
[2024-12-03 09:55] VITALS: BP 139/85; PULSE 89; RESP 16; O2SAT 96; BMI 30.7
--- NOTE | 2024-12-03 10:28 | EXP.PAIN.SOA ---
[facility] Disclaimer: The information contained in this section may have been updated after the patient was seen, as this information can be updated by other users. Medical History (Updated 12/03/24 @ 10:30 by Keshia Pierson APRN) Chronic GERD Gastroenteritis Abscessed tooth Depression Anxiety Social History Smoking Status: Current every day smoker tobacco type: cigarettes packs per day: 1 alcohol intake: never substance use type: denies use current occupational status: other Travel in the last 8 weeks: None household members: spouse housing: house Have you lived/traveled outside US in past 30 days?: No Contact w/someone who lives/traveled outside US past 30 days?: No Exposure to someone with infectious disease in past 14 days?: No Do you have a fever (greater than 100.4 F or 38 C)?: No Have you tested positive for COVID-19: No Exposed to someone with COVID-19 in past 14 days?: No Do you have a sore throat?: No Do you have a cough?: No Do you have any weakness?: No Do you have any diarrhea?: No Are you experiencing any unusual bleeding?: No Do you have any muscle aches/pain?: No Do you have any abdominal pain?: No Are you experiencing loss of taste or smell?: No PM Subjective & Objective Subjective Subjective:: Patient is a pleasant 39-year-old male who presents today for his 3-month follow-up and medication refill. Today he rates his pain a 8 out of 10. He denies any new injuries or trauma. He states his pain overall is more in his neck and shoulders as well as his low back. Patient denies any changes to his other medications. He is currently managed with Celebrex 200 mg once a day, methocarbamol 500 mg 3 times a day and tizanidine 4 mg at bedtime. He states that these medications are still helping however some days they do not seem like they do as well. He denies any side effects. His Marcelino has been reviewed and is appropriate. Review of Systems: General: No recent weight changes, no fever, no sleep disturbances Respiratory: No cough, no shortness of air, no recurring pulmonary infections Cardiovascular/peripheral vascular: No chest pain, no palpitations, no edema, no shortness of breath Gastrointestinal: No new onset incontinence, normal bowel movements reported Genitourinary: No new onset incontinence Musculoskeletal: Low back pain, neck pain, shoulder pain Psychiatric: [Normal mood/affect] Neurological: [Denies weakness in extremities], [denies balance issues] Pain at rest (0-10 scale): 8 Objective Objective:: Physical Exam: General: Alert and oriented x3, no acute distress, pleasant and cooperative Lungs: Respirations even and unlabored, symmetrical chest expansion Eyes: PERRL Musculoskeletal: Flexion and extension of lumbar [spine] somewhat guarded secondary to pain, [antalgic gait noted] Neurological: Speech clear, no gross sensory deficit Has patient had previous pain injection?: No Conservative treatment options previously tried: Home exercise plan Length of treatment: Longer than 12 weeks Meds Home Medications and Allergies Home Medications ?Medication ?Instructions ?Recorded ?Confirmed ?Type atorvastatin 10 mg tablet (Lipitor) 10 mg PO HS #90 tabs 04/29/24 12/03/24 Rx ergocalciferol (vitamin D2) 1,250 See Rx Instructions .Route 04/29/24 12/03/24 Rx mcg (50,000 unit) capsule .COMPLEX #5 caps tizanidine 4 mg tablet (Zanaflex) 4 mg PO HS #30 tabs 05/25/24 12/03/24 Rx azithromycin 250 mg tablet 250 mg PO UD DOSE PK #6 tabs 08/21/24 12/03/24 Rx (Zithromax) vroqgnpqwwznlet-vdjwtnndgrfkduv-FH 5 ml PO Q6H PRN Cough #240 mL 08/21/24 12/03/24 Rx 2 mg-30 mg-10 mg/5 mL oral syrup (Bromfed DM) ondansetron 4 mg disintegrating 4 mg PO Q8H PRN Nausea #12 tabs 08/21/24 12/03/24 Rx tablet celecoxib 200 mg capsule (Celebrex) 200 mg PO DAILY #30 caps 08/24/24 12/03/24 Rx methocarbamol 500 mg tablet 500 mg PO TID PRN muscle pain #42 08/24/24 12/03/24 Rx tabs methocarbamol 500 mg tablet 500 mg PO TID #90 tabs 09/16/24 12/03/24 Rx New Prescriptions to Start Prescriptions: Allergies Allergy/AdvReac Type Severity Reaction Status Date / Time Penicillins (PENICILLINS) Allergy Unknown Verified 04/29/24 10:04 Assessment and Plan *Assessment and plan (1) Neck pain: Status: Acute Category: Medical Code(s): M54.2 - Cervicalgia (2) Lumbar radiculopathy: Status: Chronic Category: Medical Code(s): M54.16 - Radiculopathy, lumbar region (3) Degenerative joint disease (DJD) of lumbar spine: Status: Chronic Qualifiers: Spinal osteoarthritis complication: unspecified spinal osteoarthritis Qualified Code(s): M47.816 - Spondylosis without myelopathy or radiculopathy, lumbar region Category: Medical Code(s): M47.816 - Spondylosis without myelopathy or radiculopathy, lumbar region (4) Shoulder pain: Status: Acute Category: Medical Code(s): M25.519 - Pain in unspecified shoulder Plan I will refill the patient's Celebrex and tizanidine and provide a 3-month supply of this medication. I did elementary school counselor the patient that I will increase his methocarbamol to 750 mg and provide a 3-month supply of this medication. Patient was counseled to call our office if he is unable to tolerate the different dosage. Patient agrees with this plan of care. I did also discuss with patient that we can always try additional injections if at any point he would like to proceed forward with that option to let us know. He agrees. Patient will return to clinic in 3 months. Patient has been instructed to contact the clinic with any concerns before the next appointment. Dr. Mendez has reviewed this note and agrees with this plan of care. This note was dictated using voice recognition software and make contain errors or omissions. All injections are used with Lidocaine, Bupivacaine and Depo Medrol. Occasionally urine drug screen is needed to verify patient's compliance with our office pain contract. This is ordered based off specific treatments related to chronic pain with the potential to abuse certain medications.
== END 2024-12-03 23:59 | disposition home or self-care (01) ==
PROVIDERS: PCP Family Medicine; Visit Provider Nurse Practitioner Family
DX: M54.2 Cervicalgia (principal); M47.26 Other spondylosis with radiculopathy, lumbar region; M25.519 Pain in unspecified shoulder; F17.210 Nicotine dependence, cigarettes, uncomplicated
CPT/HCPCS: 99212; G0463

== ENCOUNTER 2025-03-04 08:35 | Outpatient (POV) | payer OTHER, SELFPAY ==
--- NOTE | 2025-03-04 08:49 | EXP.PAIN.SOA ---
[facility] Disclaimer: The information contained in this section may have been updated after the patient was seen, as this information can be updated by other users. Medical History Chronic GERD Gastroenteritis Abscessed tooth Depression Anxiety Social History Smoking Status: Current every day smoker tobacco type: cigarettes packs per day: 1 alcohol intake: never substance use type: denies use current occupational status: other Travel in the last 8 weeks?: None household members: spouse housing: house PM Subjective & Objective Subjective Subjective:: Patient is a pleasant 39-year-old male who presents today for 3-month follow-up. Today he rates his pain as 6 out of 10. He denies any new injuries or changes. Patient is having a little bit more shoulder pain here recently. He does state that he has had family that is not been as healthy and he is having to do a little bit more help for them. Patient is currently managed with Celebrex 200 mg daily, methocarbamol 500 mg 3 times a day as needed and he does use tizanidine 4 mg at bedtime. He denies any side effects. His Marcelino has been reviewed and is appropriate. Review of Systems: General: No recent weight changes, no fever, no sleep disturbances Respiratory: No cough, no shortness of air, no recurring pulmonary infections Cardiovascular/peripheral vascular: No chest pain, no palpitations, no edema, no shortness of breath Gastrointestinal: No new onset incontinence, normal bowel movements reported Genitourinary: No new onset incontinence Musculoskeletal: Bilateral shoulder pain Psychiatric: [Normal mood/affect] Neurological: [Denies weakness in extremities], [denies balance issues] Pain at rest (0-10 scale): 6 Objective Objective:: Physical Exam: General: Alert and oriented x3, no acute distress, pleasant and cooperative Lungs: Respirations even and unlabored, symmetrical chest expansion Eyes: PERRL Musculoskeletal: Flexion and extension of lumbar [spine] within normal limits Neurological: Speech clear, no gross sensory deficit Has patient had previous pain injection?: No Conservative treatment options previously tried: Home exercise plan Length of treatment: Longer than 12 weeks Meds Home Medications and Allergies Home Medications ?Medication ?Instructions ?Recorded ?Confirmed ?Type atorvastatin 10 mg tablet (Lipitor) 10 mg PO HS #90 tabs 08/21/24 03/27/25 Rx ergocalciferol (vitamin D2) 1,250 See Rx Instructions .Route 04/29/24 12/03/24 Rx mcg (50,000 unit) capsule .COMPLEX #5 caps azithromycin 250 mg tablet 250 mg PO UD DOSE PK #6 tabs 08/21/24 12/03/24 Rx (Zithromax) ncdbnubwerlgzwu-wqifkqhivmkqqrp-XG 5 ml PO Q6H PRN Cough #240 mL 08/21/24 12/03/24 Rx 2 mg-30 mg-10 mg/5 mL oral syrup (Bromfed DM) ondansetron 4 mg disintegrating 4 mg PO Q8H PRN Nausea #12 tabs 08/21/24 12/03/24 Rx tablet methocarbamol 500 mg tablet 500 mg PO TID PRN muscle pain #42 08/24/24 12/03/24 Rx tabs methocarbamol 500 mg tablet 500 mg PO TID #90 tabs 09/16/24 12/03/24 Rx celecoxib 200 mg capsule (Celebrex) 200 mg PO DAILY #30 caps 12/03/24 Rx methocarbamol 750 mg tablet 750 mg PO TID #90 tabs 12/03/24 Rx tizanidine 4 mg tablet (Zanaflex) 4 mg PO HS #30 tabs 12/03/24 Rx New Prescriptions to Start Prescriptions: Allergies Allergy/AdvReac Type Severity Reaction Status Date / Time Penicillins (PENICILLINS) Allergy Unknown Verified 04/29/24 10:04 Assessment and Plan *Assessment and plan (1) Shoulder pain: Status: Acute Category: Medical Code(s): M25.519 - Pain in unspecified shoulder (2) Neck pain: Status: Acute Category: Medical Code(s): M54.2 - Cervicalgia (3) Degenerative joint disease (DJD) of lumbar spine: Status: Chronic Qualifiers: Spinal osteoarthritis complication: unspecified spinal osteoarthritis Qualified Code(s): M47.816 - Spondylosis without myelopathy or radiculopathy, lumbar region Category: Medical Code(s): M47.816 - Spondylosis without myelopathy or radiculopathy, lumbar region Plan We will refill his Celebrex, methocarbamol and tizanidine and provide a 3-month supply. Patient was counseled that I will send in a new order of the compounded cream as he stated that he had never heard from them previously. I did recommend he try this on his shoulders however if it does continue to worsen that we can do imaging as well as possible injections. We will follow-up with him in future. \ Patient has been instructed to contact the clinic with any concerns before the next appointment. Dr. Mendez has reviewed this note and agrees with this plan of care. This note was dictated using voice recognition software and make contain errors or omissions. All injections are used with Lidocaine, Bupivacaine and dexamethasone. Occasionally urine drug screen is needed to verify patient's compliance with our office pain contract. This is ordered based off specific treatments related to chronic pain with the potential to abuse certain medications.
--- OUTSIDE RECORDS SUMMARY | 2025-03-04 08:51 | XMS_ITS | Clinical Summary ---
Author Organization [facility] Address [address] [place] [address] Care Team Providers Care Wheat Washer Name Role Phone Iain Ledezma MD Primary Care Provider [phone] Allergies Active Allergy Reactions Criticality Noted Date Comments Penicillins Unknown - Patient st ates they do not know rxn details Low 03/10/2021 Medications buPROPion (Wellbutrin) 75 MG tablet Take 75 mg by mouth 1 (one) time each day. Active clonazePAM (KlonoPIN) 0.5 MG disintegrating tablet Take 0.5 mg by mouth 2 (two) times a day if needed for seizures. Active meloxicam (Mobic) 7.5 MG tablet Take 7.5 mg by mouth 1 (one) time each day. Active sodium chloride-Aloe vera gel ([place] Saline) gel topical gel Apply 1 application to affected nostril(s) if needed. Active traMADol (Ultram) 50 MG tablet Take by mouth 2 (two) times a day if needed for severe pain. Active traZODone (Desyrel) 50 MG tablet Take 50 mg by mouth at night if needed for sleep. Active Active Problems Problem Noted Date Diagnosed Date Lumbar radicular pain 03/10/2021 DDD (degenerative disc disease), lumbar 03/10/20 21 Social History Tobacco Use Types Packs/Day Years Used Date Smoking Tobacco: Never Assessed Sex and Gender Information Value Date Recorded Sex Assigned at Not on file Legal Sex Male 8:31 PM EDT Gender Identity Not on file Sexual Orientation Not on file Plan of Treatment Health Maintenance Due Date Last Done Comments [facility]-Depression Screening 1983 [facility]-Infant/Child/Adol SDOH Screenings 1983 [facility]-Varicella Vaccines (1 of 2 - 13+ 2-dose series) 1996 HPV Vaccines (1 - Male 3-dos e series) 1998 [facility]- SDOH Screenings 2001 [facility]-Adult SDOH Screenings 2001 [facility]-DTaP,Tdap,and Td Vaccine s (1 - Tdap) 2002 [facility]-Hepatitis B Vaccines (1 of 3 - 19+ 3-dose series) 2002 [id number] Vaccine (1 - 20 24-25 season) 2024 [facility]-Influenza Vaccine (Seaso n Ended) 2025 [facility]-Zoster Vaccines (1 of 2) 2033 [facility]-HIB Vaccines Aged Out No longer e ligible based on patient's age to complete this topic [facility]-Hepatitis A Vaccines Aged Out No longer eligible based on patient's age to complete this topic [facility]-IPV Vaccines Aged Out No longer e ligible based on patient's age to complete this topic [facility]-Pneumococcal Vaccine: Pediatrics (0 to 5 Years) and At-Risk Patients (6 to 49 Years) Aged Out No long er eligible based on patient's age to complete this topic [facility]-Rotavirus Vaccines Aged Out No lo nger eligible based on patient's age to complete this topic Care Teams Wheat Washer Relationship Specialty Start Date End Date Iain Ledezma MD [address] [facility] [place] [phone] PCP - General 01/20/21
--- OUTSIDE RECORDS SUMMARY | 2025-03-04 08:52 | XMS_ITS | Clinical Summary ---
Author Organization [facility] Address [address] [place] [id number] Phone [email or web address] Care Team Providers Care Transcriptionist Name Role Phone Unavailable Primary Care Provider Unavailabl e Social History Tobacco Use Types Packs/Day Years Used Date Smoking Tobacco: Never Assessed Intimate Partner Violence Answer Date R ecorded Insults You Not on file 12/24/2020 Threatens You Not on file 12/24/2020 Screams at You Not on file 12/24/2020 Physically Hurt Not on file 12/24/2020 Intimate Partner Violence Score Not on file 12/24/2020 Stress Answer Date Recorded Stress in your Life Not on file 07/15/2024 Dealing with Stress 3 07/15/2024 Sex and Gender Information Value Date Recorded Sex Assigned at Not on file Legal Sex Male 5:24 AM CDT Gender Identity Not on file Sexual Orientation Not on file Plan of Treatment Health Maintenance Due Date Last Done Comments Dental Cleaning/Exam 1985 HIV Screening 1985 Hepatitis C Screening 1983 Annual Preventive Exam 2001 Hep B Infection Screening - Triple Screen 2001 Hepatitis B Immunization (1 of 3 - 19+ 3-dose series) 2002 Tetanus Diphtheria and Pertu ssis Immunization (1 - Tdap) 2002 Covid-19 Immunization (1 - 2 024-25 season) 2024 Influenza Immunization (Seas on Ended) 2025 HIB Immunization Aged Out No longer e ligible based on patient's age to complete this topic HPV Immunization Aged Out No longer e ligible based on patient's age to complete this topic Hepatitis A Immunization Aged Out No longer eligible based on patient's age to complete this topic Pneumococcal: Ped (0 to 5 Yr s) and At-Risk Member (6 to 64 Yrs) Aged Out No longer e ligible based on patient's age to complete this topic Polio Immunization Aged Out No longer eligible based on patient's age to complete this topic Varicella Immunization Aged Out No lo nger eligible based on patient's age to complete this topic Insurance OPT OUT NO COPAY NB
[2025-03-04 09:45] VITALS: BP 120/81; PULSE 73; RESP 14; O2SAT 96; BMI 30.4
== END 2025-03-04 23:59 | disposition home or self-care (01) ==
PROVIDERS: PCP Nurse Practitioner; Visit Provider Nurse Practitioner Family
DX: M25.511 Pain in right shoulder (principal); M25.512 Pain in left shoulder; M54.2 Cervicalgia; M47.816 Spondylosis without myelopathy or radiculopathy, lumbar region; Z79.899 Other long term (current) drug therapy; Z79.1 Long term (current) use of non-steroidal anti-inflammatories (NSAID)
CPT/HCPCS: 99212; G0463

== ENCOUNTER 2025-05-21 05:24 | Emergency (ER) | payer OTHER, SELFPAY ==
[2025-05-21] VITALS (14 sets, daily range): BP systolic 117–142; BP diastolic 73–105; PULSE 48–68; RESP 16–19; TEMP 36.6–36.7; O2SAT 94–98; BMI 30.4
--- OUTSIDE RECORDS SUMMARY | 2025-05-21 05:31 | XMS_ITS | Clinical Summary ---
Author Organization [facility] Address [address] [place] [address] Care Team Providers Care Factory Representative Name Role Phone Iain Ledezma MD Primary Care Provider [phone] Allergies Active Allergy Reactions Criticality Noted Date [...] each day. Active sodium chloride-Aloe vera gel ([place] Saline) gel topical gel Apply 1 application [...] Date Last Done Comments [facility]-Depression Screening 1983 [facility]-/Child/Adol SDOH Screenings 1983 [facility]-Varicella Vaccines (1 of 2 - 13+ 2-dose series) 1996 [facility]- SDOH Screenings 2001 [facility]-Adult SDOH Screenings 2001 [facility]-DTaP,Tdap,and Td Vaccine s (1 - Tdap) 2002 [facility]-Hepatitis B Vaccines (1 of 3 - 19+ 3-dose series) 2002 HPV Vaccines (1 - 3-dose SCD M series) 2010 [id number] Vaccine (1 - 20 24-25 season) 2025 [facility]-Influenza Vaccine (#1) 2025 [facility]-Zoster Vaccines (1 of 2) 2033 [...] age to complete this topic Care Teams Factory Representative Relationship Specialty Start Date End Date Iain Ledezma MD [address] [facility] [place] [phone] PCP - General 01/20/21
--- OUTSIDE RECORDS SUMMARY | 2025-05-21 05:32 | XMS_ITS | Clinical Summary ---
Author Organization [facility] Address [address] [place] [id number] Phone [email or web address] Care Team Providers Care Engineering Supplies Sales Name Role Phone Unavailable Primary Care Provider [...] HIV Screening 1983 Hepatitis C Screening 1983 HPV Immunization (1 - Male 3 -dose series) 1998 Annual Preventive Exam 2001 Hep B Infection Screening - Triple Screen 2001 Hepatitis B Immunization (1 of 3 - 19+ 3-dose series) 2002 Tetanus Diphtheria and Pertu ssis Immunization (1 - Tdap) 2002 Covid-19 Immunization (1 - 2 25 season) 2025 Influenza Immunization (#1) 2025 HIB Immunization Aged Out No longer [...]
--- NOTE | 2025-05-21 05:35 | CT_ITS ---
FINAL REPORT TECHNIQUE: Thin section axial images were obtained through the abdomen after intravenous contrast. Reconstruction images were obtained from the axial data. Exam was performed using dose reduction techniques. CLINICAL HISTORY: Left testicular pain, R inguinal pain FINDINGS: The lung bases are clear. The liver is homogeneous. The gallbladder is present. The spleen, adrenal glands, and pancreas are unremarkable. There is no hydronephrosis or solid renal mass. Abdominal GI tract is without acute abnormality. There is no abdominal lymphadenopathy or ascites. The prostate and urinary bladder are unremarkable. The pelvic portions of the GI tract, including the appendix, are without acute abnormality. There is no pelvic lymphadenopathy or ascites. No acute osseous abnormalities identified. IMPRESSION: No CT evidence of acute intra-abdominal or intrapelvic abnormality. Reviewed, Interpreted and Dictated by Mary Jo Partida MD Transcribed by Clarissa Shaikh Authenticated and [facility]
--- NOTE | 2025-05-21 05:38 | ED_ITS ---
Discharge Plan Disposition Patient Disposition: Home, Self-Care Prescriptions Prescriptions: No Action atorvastatin [Lipitor] 10 mg tablet 10 mg PO HS Qty: 90 2RF ergocalciferol (vitamin D2) 1,250 mcg (50,000 unit) capsule See Rx Instructions .ROUTE .COMPLEX Qty: 5 6RF Dose Instruction: Take 1 capsule by mouth once a week Rx Instructions: Take 1 capsule by mouth once a week celecoxib [Celebrex] 200 mg capsule 200 mg PO DAILY Qty: 30 2RF tizanidine [Zanaflex] 4 mg tablet 4 mg PO HS Qty: 30 2RF methocarbamol 750 mg tablet 750 mg PO TID Qty: 90 2RF Referrals Follow up/Referrals: Dayanna Guerrero APRN [Primary Care Provider, Medical] - See instructions Shane Lovett MD [Staff Physician, Urology] - See instructions Activity Restrictions/Add. Instructions Additional Instructions/Restrictions: You were found to have enlargement of the veins in your scrotum called varicoceles. This could be contributing to the pain that you are feeling, although you likely have a pulled muscle as well. Continue the medications you are taking at home. I am referring you to Dr. Lovett with urology for follow-up regarding your varicoceles. I encourage you to call their office today to schedule an appointment. If you develop any new or worsening symptoms, or if you become concerned for your health for any reason, return to the emergency department for evaluation. Clinical Impressions Clinical Impression: Right groin pain, Bilateral varicoceles Instructions Patient Instructions: DI for Urinary Tract Infection (UTI), DI for Urinary Tract Infection in Children Print Language Print Language: Vietnamese Discharge ED Provider: Edwin Hayward General Adult HPI <Chandan Bess MD - Last Filed: 05/21/25 07:06> General Chief complaint: Urogenital-Male Stated complaint: groin pain, injury Time Seen by Provider: 05/21/25 05:27 History of Present Illness HPI narrative: 40-year-old male with history of chronic back pain presents to the ER with groin pain. Patient reports 2 days ago he was squatted down picking up a heavy box at work when he felt a pop sensation in his groin. He had pain radiate into the abdomen when it occurred. Since that time he has had discomfort in the scrotal area and in the right groin. He went to [facility] yesterday and they recommended imaging follow-up. He was unable to get a CT scheduled with his PCP so he came to the ER this morning for further evaluation. He states pain is currently tolerable. He has no nausea or vomiting. He denies any swelling of the scrotum, no pain with urination, no blood in the urine, no pain with defecation. Patient has no history of hernia. He describes pain in the right groin area as well as discomfort behind the testicles . Patient is worried about possible hernia or other injuries. Related Data Previous Rx's ?Medication ?Instructions ?Recorded atorvastatin 10 mg tablet (Lipitor) 10 mg PO HS #90 ta bs 04/29/24 ergocalciferol (vitamin D2) 1,250 See Rx Instructions .Route 04/29/24 mcg (50,000 unit) capsule .COMPLEX #5 caps celecoxib 200 mg capsule (Celebrex) 200 mg PO DAILY #3 0 caps 03/04/25 methocarbamol 750 mg tablet 750 mg PO TID #90 tabs tizanidine 4 mg tablet (Zanaflex) 4 mg PO HS #30 tabs 03/04/25 Allergies Allergy/AdvReac Type Severity Reaction Status Date / Time Penicillins (PENICILLINS) Allergy Unknown Rash Verified 05/20/25 12:26 [facility] <Chandan Bess MD - Last Filed: 05/21/25 07:06> [facility] Disclaimer: The information contained in this section may have been updated after the patient was seen, as this information can be updated by other users. Medical History Chronic GERD Gastroenteritis Abscessed tooth Depression Anxiety Social History Smoking Status: Current every day smoker tobacco type: cigarettes packs per day: 1 alcohol intake: never substance use type: denies use current occupational status: other Travel in the last 8 weeks?: None household members: spouse housing: house Have you lived/traveled outside US in past 30 days?: No Contact w/someone who lives/traveled outside US past 30 days?: No Exposure to someone with infectious disease in past 14 days?: No Do you have a fever (greater than 100.4 F or 38 C)?: No Have you tested positive for COVID-19?: No Exposed to someone with COVID-19 in past 14 days?: No Do you have a sore throat?: No Do you have a cough?: No Do you have any weakness?: No Do you have any diarrhea?: No Are you experiencing any unusual bleeding?: No Do you have any muscle aches/pain?: No Do you have any abdominal pain?: No Are you experiencing loss of taste or smell?: No Other Medical History Have you received the Flu Vaccine for this season: No Have you received the Pneumonia Vaccine: No <Chandan Bess MD - Last Filed: 05/21/25 07:06> ROS Obtained: Yes Systems reviewed as appropriate & no additional complaints except as documented Per HPI Physical Exam <Chandan Bess MD - Last Filed: 05/21/25 07:06> General General appearance: alert and in no apparent distress Head Head exam: atraumatic and normocephalic Eye Eye exam: Present PERRL and EOMI ENT ENT exam: Present mucous membranes moist Neck Neck exam: Present normal inspection and full ROM Chest Chest inspection: Present symmetric chest wall rise Respiratory Respiratory exam: Absent respiratory distress or stridor Cardiovascular Cardiovascular exam: Present regular rate and normal rhythm Abdominal Exam Abdominal exam: Present soft; Absent distention, tenderness, guarding or rebound exam: Present normal inspection, testicular tenderness (Posterior aspect left testicle) and normal testicular lie; Absent urethral discharge or scrotal swelling Expanded Exam exam: Absent penile swelling, lesions or erythema Scrotal exam: bilateral: cremasteric reflex present Comment: No inguinal adenopathy appreciated, tenderness within the right inguinal canal without mass, deformity, or erythema, no obvious hernia appreciated Extremities Exam Extremities exam: Present full ROM Neurological Exam Neurological exam: Present alert and oriented X3; Absent motor sensory deficit Psychiatric Psychiatric exam: Present normal affect and normal mood Skin Skin exam: Present warm and dry Medical Decision Making <Chandan Bess MD - Last Filed: 05/21/25 07:06> Medical Records Medical records reviewed: Yes I reviewed the patient's medical records. Screening: Per USPSTF and CDC recommendations, given the prevalence of disease in our region, it is our hospital?s policy to screen for HIV and viral Hepatitis for all patients aged 18 and over and those with ongoing risk factors. MR Comment: [facility] note from patient's visit is just a draft at this time Marcelino Inquiry Pt receiving controlled substance: No Vital Signs: 05/21/25 05:37 05/21/25 05:48 05/21/25 06:00 Temperature 97.8 F Temperature Source Oral Pulse Rate 68 56 L Pulse Rate [Right Radial] 64 Respiratory Rate 16 17 19 Blood Pressure 122/77 118/81 Blood Pressure [Right Arm] 142/105 H Blood Pressure Mean 92 91 Blood Pressure Mean [Right Arm] 117 Blood Pressure Source Blood Pressure Source [Right Arm] Automatic Cuff Blood Pressure Position Blood Pressure Position [Right Arm] Sitting 02 Sat by Pulse Oximetry 96 94 L 95 Oxygen Delivery Method Room Air Room Air Room Air 05/21/25 06:15 05/21/25 06:15 05/21/25 06:30 Temperature Temperature Source Pulse Rate 56 L 59 L 55 L Pulse Rate [Right Radial] Respiratory Rate 17 17 Blood Pressure 121/80 119/77 Blood Pressure [Right Arm] Blood Pressure Mean 88 85 Blood Pressure Mean [Right Arm] Blood Pressure Source Blood Pressure Source [Right Arm] Blood Pressure Position Blood Pressure Position [Right Arm] 02 Sat by Pulse Oximetry 96 96 96 Oxygen Delivery Method Room Air Room Air 05/21/25 06:45 05/21/25 07:16 05/21/25 07:30 Temperature Temperature Source Pulse Rate 55 L 56 L 53 L Pulse Rate [Right Radial] Respiratory Rate 19 17 Blood Pressure 129/79 123/78 133/89 Blood Pressure [Right Arm] Blood Pressure Mean 94 96 Blood Pressure Mean [Right Arm] Blood Pressure Source Blood Pressure Source [Right Arm] Blood Pressure Position Blood Pressure Position [Right Arm] 02 Sat by Pulse Oximetry 96 96 97 Oxygen Delivery Method Room Air Room Air 05/21/25 07:45 05/21/25 08:00 05/21/25 08:30 Temperature Temperature Source Pulse Rate 49 L 48 L 58 L Pulse Rate [Right Radial] Respiratory Rate 17 Blood Pressure 120/83 117/78 120/73 Blood Pressure [Right Arm] Blood Pressure Mean Blood Pressure Mean [Right Arm] Blood Pressure Source Automatic Cuff Blood Pressure Source [Right Arm] Blood Pressure Position Supine Blood Pressure Position [Right Arm] 02 Sat by Pulse Oximetry 98 98 97 Oxygen Delivery Method Room Air 05/21/25 09:50 05/21/25 09:59 05/21/25 10:15 Temperature 98.0 F Temperature Source Oral Pulse Rate 53 L 53 L 53 L Pulse Rate [Right Radial] Respiratory Rate 18 16 Blood Pressure 119/76 119/76 119/76 Blood Pressure [Right Arm] Blood Pressure Mean Blood Pressure Mean [Right Arm] Blood Pressure Source Automatic Cuff Automatic Cuff Blood Pressure Source [Right Arm] Blood Pressure Position Supine Sitting Blood Pressure Position [Right Arm] 02 Sat by Pulse Oximetry 98 97 Oxygen Delivery Method Room Air Room Air Lab Data Lab Results 05/21/25 05:45: WBC 8.9, RBC 5.13, Hgb 15.6, Hct 47.4, MCV 92.4, MCH 30.4, MCHC 32.9, RDW 13.1, Plt Count 256, MPV 9.6, Neut % (Auto) 51.4, Lymph % (Auto) 31.0, [place] % (Auto) 10.2 H, Eos % (Auto) 6.0, Baso % (Auto) 1.2, Neut # (Auto) 4.6, Lymph # (Auto) 2.8, [place] # (Auto) 0.9, Eos # (Auto) 0.5 H, Baso # (Auto) 0.1, PT 11.4, INR 1.03, Sodium 139, Potassium 4.1, Chloride 109 H, Carbon Dioxide 23, Anion Gap 11.1, BUN 13, Creatinine 0.90, Estimated Creat Clear 141, Estimated GFR 93, Est GFR ( Amer) 112, Glucose 109 H, Calcium 8.7, Total Bilirubin 0.5, AST 24, ALT 29, Alkaline Phosphatase 66, Total Protein 7.0, Albumin 4.1, Globulin 2.9, Albumin/Globulin Ratio 1.4, HCV Ab SHARITA w/Rflx PCR Qn Negative, HIV Ag/Ab Combo Qual Negative 05/21/25 07:33: Urine Color Yellow, Urine Appearance Clear, Urine pH 6.5, Ur Specific [place] 1.010, Urine Protein Negative, Urine Glucose (UA) Negative, Urine Ketones Negative, Urine Blood Negative, Urine Nitrate Negative, Urine Bilirubin Negative, Urine Urobilinogen 0.2, Ur Leukocyte Esterase Negative, Urine RBC None, Urine WBC Occasional, Ur Squamous Epith Cells None, Urine Bacteria None 05/21/25 05:45 05/21/25 05:45 Orders (Tests/Meds): ED MEDICATIONS Discontinued Medications Generic Name Dose Route Start Last Admin Trade Name Luis Armandoq PRN Reason Stop Dose Admin Iopamidol 75 ml 05/21/25 06:48 05/21/25 06:49 Iopamidol-370 (76%);100ml Bottle IV 05/21/25 06:49 75 ml ONCE ONE Administration Sodium Chloride 10 ml 05/21/25 06:48 05/21/25 06:49 Sodium Chloride 0.9% 10ml Syr (Rad Only) IV 05/21/25 06:49 10 ml ONCE ONE Administration ORDERS Category Date Time Status CT abdomen pelvis w con Stat Cat Scan 05/21/25 05:35 Completed CBC w/Auto Diff [Complete Blood Count Auto Diff] Stat Lab 05/21/25 05:45 Completed CMP [Comprehensive Metabolic Panel] Stat Lab 05/21/25 05:45 Completed HIV Combo Stat Lab 05/21/25 05:45 Completed Hepatitis C Ab Qual. W/ RFX Stat Lab 05/21/25 05:45 Completed PT INR [Prothrombin Time INR] Stat Lab 05/21/25 05:45 Completed Urinalysis and Microscopic Stat Lab 05/21/25 07:33 Completed Urine Chlam/Gono/Trich ([facility]) Stat Lab 05/21/25 07:33 Received US scrotum [US Testicular] Stat Ultrasound 05/21/25 07:50 Completed Medical Decision Narrative: In summary, this 40-year-old male with comorbidities described in the HPI presents to the emergency department today with groin pain after work-related injury. On initial evaluation patient is hemodynamically stable, afebrile, exam notable for benign abdomen, patient has normal testicular lie, cremasteric reflexes present bilaterally, he has no pain of the testicles themselves but has discomfort with palpation posterior to the left testicle though there is not true epididymal tenderness, I do not appreciate obvious varicocele on palpation, no swelling of the scrotum, there is tenderness in the right inguinal area without mass, erythema, or evidence of traumatic injury. No obvious hernia appreciated. Differential diagnosis includes but is not limited to inguinal hernia, femoral hernia, hydrocele, varicocele, I considered testicular torsion but do not appreciate evidence of this and would expect the patient to have significantly more pain than that with which he presents. He also has normal testicular lie and presence of cremasteric reflex which is reassuring. Based on these concerns, I ordered urinalysis, CT imaging with contrast initially. If there are no clear answers from this workup, then I will proceed with ultrasound to more closely evaluate the testes individually. Patient declined any pain medication for treatment at this time. Labs personally reviewed demonstrate no leukocytosis or anemia, normal platelets, PT/INR normal, CMP nonactionable. CT imaging personally interpreted demonstrates no obvious hernia, no bowel obstruction, radiology read pending at the time of physician handoff. Patient handed off to Dr. Hayward in stable condition pending CT read and urinalysis. <Edwin Hayward MD - Last Filed: 05/21/25 15:40> Vital Signs: 05/21/25 05:37 05/21/25 05:48 05/21/25 06:00 Temperature 97.8 F Temperature Source Oral Pulse Rate 68 56 L Pulse Rate [Right Radial] 64 Respiratory Rate 16 17 19 Blood Pressure 122/77 118/81 Blood Pressure [Right Arm] 142/105 H Blood Pressure Mean 92 91 Blood Pressure Mean [Right Arm] 117 Blood Pressure Source Blood Pressure Source [Right Arm] Automatic Cuff Blood Pressure Position Blood Pressure Position [Right Arm] Sitting 02 Sat by Pulse Oximetry 96 94 L 95 Oxygen Delivery Method Room Air Room Air Room Air 05/21/25 06:15 05/21/25 06:15 05/21/25 06:30 Temperature Temperature Source Pulse Rate 56 L 59 L 55 L Pulse Rate [Right Radial] Respiratory Rate 17 17 Blood Pressure 121/80 119/77 Blood Pressure [Right Arm] Blood Pressure Mean 88 85 Blood Pressure Mean [Right Arm] Blood Pressure Source Blood Pressure Source [Right Arm] Blood Pressure Position Blood Pressure Position [Right Arm] 02 Sat by Pulse Oximetry 96 96 96 Oxygen Delivery Method Room Air Room Air 05/21/25 06:45 05/21/25 07:16 05/21/25 07:30 Temperature Temperature Source Pulse Rate 55 L 56 L 53 L Pulse Rate [Right Radial] Respiratory Rate 19 17 Blood Pressure 129/79 123/78 133/89 Blood Pressure [Right Arm] Blood Pressure Mean 94 96 Blood Pressure Mean [Right Arm] Blood Pressure Source Blood Pressure Source [Right Arm] Blood Pressure Position Blood Pressure Position [Right Arm] 02 Sat by Pulse Oximetry 96 96 97 Oxygen Delivery Method Room Air Room Air 05/21/25 07:45 05/21/25 08:00 05/21/25 08:30 Temperature Temperature Source Pulse Rate 49 L 48 L 58 L Pulse Rate [Right Radial] Respiratory Rate 17 Blood Pressure 120/83 117/78 120/73 Blood Pressure [Right Arm] Blood Pressure Mean Blood Pressure Mean [Right Arm] Blood Pressure Source Automatic Cuff Blood Pressure Source [Right Arm] Blood Pressure Position Supine Blood Pressure Position [Right Arm] 02 Sat by Pulse Oximetry 98 98 97 Oxygen Delivery Method Room Air 05/21/25 09:50 05/21/25 09:59 05/21/25 10:15 Temperature 98.0 F Temperature Source Oral Pulse Rate 53 L 53 L 53 L Pulse Rate [Right Radial] Respiratory Rate 18 16 Blood Pressure 119/76 119/76 119/76 Blood Pressure [Right Arm] Blood Pressure Mean Blood Pressure Mean [Right Arm] Blood Pressure Source Automatic Cuff Automatic Cuff Blood Pressure Source [Right Arm] Blood Pressure Position Supine Sitting Blood Pressure Position [Right Arm] 02 Sat by Pulse Oximetry 98 97 Oxygen Delivery Method Room Air Room Air Lab Data Lab Results 05/21/25 05:45: WBC 8.9, RBC 5.13, Hgb 15.6, Hct 47.4, MCV 92.4, MCH 30.4, MCHC 32.9, RDW 13.1, Plt Count 256, MPV 9.6, Neut % (Auto) 51.4, Lymph % (Auto) 31.0, [place] % (Auto) 10.2 H, Eos % (Auto) 6.0, Baso % (Auto) 1.2, Neut # (Auto) 4.6, Lymph # (Auto) 2.8, [place] # (Auto) 0.9, Eos # (Auto) 0.5 H, Baso # (Auto) 0.1, PT 11.4, INR 1.03, Sodium 139, Potassium 4.1, Chloride 109 H, Carbon Dioxide 23, Anion Gap 11.1, BUN 13, Creatinine 0.90, Estimated Creat Clear 141, Estimated GFR 93, Est GFR ( Amer) 112, Glucose 109 H, Calcium 8.7, Total Bilirubin 0.5, AST 24, ALT 29, Alkaline Phosphatase 66, Total Protein 7.0, Albumin 4.1, Globulin 2.9, Albumin/Globulin Ratio 1.4, HCV Ab SHARITA w/Rflx PCR Qn Negative, HIV Ag/Ab Combo Qual Negative 05/21/25 07:33: Urine Color Yellow, Urine Appearance Clear, Urine pH 6.5, Ur Specific [place] 1.010, Urine Protein Negative, Urine Glucose (UA) Negative, Urine Ketones Negative, Urine Blood Negative, Urine Nitrate Negative, Urine Bilirubin Negative, Urine Urobilinogen 0.2, Ur Leukocyte Esterase Negative, Urine RBC None, Urine WBC Occasional, Ur Squamous Epith Cells None, Urine Bacteria None Orders (Tests/Meds): ED MEDICATIONS Discontinued Medications Generic Name Dose Route Start Last Admin Trade Name Sawyer PRN Reason Stop Dose Admin Iopamidol 75 ml 05/21/25 06:48 05/21/25 06:49 Iopamidol-370 (76%);100ml Bottle IV 05/21/25 06:49 75 ml ONCE ONE Administration Sodium Chloride 10 ml 05/21/25 06:48 05/21/25 06:49 Sodium Chloride 0.9% 10ml Syr (Rad Only) IV 05/21/25 06:49 10 ml ONCE ONE Administration ORDERS Category Date Time Status CT abdomen pelvis w con Stat Cat Scan 05/21/25 05:35 Completed CBC w/Auto Diff [Complete Blood Count Auto Diff] Stat Lab 05/21/25 05:45 Completed CMP [Comprehensive Metabolic Panel] Stat Lab 05/21/25 05:45 Completed HIV Combo Stat Lab 05/21/25 05:45 Completed Hepatitis C Ab Qual. W/ RFX Stat Lab 05/21/25 05:45 Completed PT INR [Prothrombin Time INR] Stat Lab 05/21/25 05:45 Completed Urinalysis and Microscopic Stat Lab 05/21/25 07:33 Completed Urine Chlam/Gono/Trich ([facility]) Stat Lab 05/21/25 07:33 Received US scrotum [US Testicular] Stat Ultrasound 05/21/25 07:50 Completed Medical Decision Narrative: In summary, this 40-year-old male with comorbidities described in the HPI presents to the emergency department today with groin pain after work-related injury. On initial evaluation patient is hemodynamically stable, afebrile, exam notable for benign abdomen, patient has normal testicular lie, cremasteric reflexes present bilaterally, he has no pain of the testicles themselves but has discomfort with palpation posterior to the left testicle though there is not true epididymal tenderness, I do not appreciate obvious varicocele on palpation, no swelling of the scrotum, there is tenderness in the right inguinal area without mass, erythema, or evidence of traumatic injury. No obvious hernia appreciated. Differential diagnosis includes but is not limited to inguinal hernia, femoral hernia, hydrocele, varicocele, I considered testicular torsion but do not appreciate evidence of this and would expect the patient to have significantly more pain than that with which he presents. He also has normal testicular lie and presence of cremasteric reflex which is reassuring. Based on these concerns, I ordered urinalysis, CT imaging with contrast initially. If there are no clear answers from this workup, then I will proceed with ultrasound to more closely evaluate the testes individually. Patient declined any pain medication for treatment at this time. Labs personally reviewed demonstrate no leukocytosis or anemia, normal platelets, PT/INR normal, CMP nonactionable. CT imaging personally interpreted demonstrates no obvious hernia, no bowel obstruction, radiology read pending at the time of physician handoff. Patient handed off to Dr. Hayward in stable condition pending CT read and urinalysis. Edwin Hayward MD At the time my assumption of care, plan was to follow-up patient's CT imaging and if no significant findings to explain patient's pain, consider scrotal ultrasound. Patient CT imaging was interpreted by me personally. No hernias or other acute intra-abdominal/pelvic findings are noted. Per radiology, no CT evidence of acute intra-abdominal or intrapelvic abnormality . On my assessment, patient davonte in stable condition. He reports some mild tenderness to the right testicle with palpation. No tenderness over the epididymis. No testicular swelling. Normal cremasteric reflex. No penile swelling or erythema. No bulging in the inguinal canals. At this time, we will obtain ultrasound of the scrotum to rule out possible testicular torsion versus varicocele/epididymitis/orchitis. Urinalysis without evidence of infection or blood Patient scrotal ultrasound showed no evidence of torsion or epididymitis. Patient does have mild bilateral varicoceles. 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 I encouraged him to continue taking the muscle relaxers as he has been as well as anti-inflammatories and Tylenol. I am referring him to Dr. Lovett with urology given he does have varicoceles on ultrasound today. All questions were answered. Return precautions were given. he demonstrated understanding and was in agreement this plan. He was then discharged from the emergency department in stable condition. Critical Care <Chandan Bess MD - Last Filed: 05/21/25 07:06> Critical Care Time Critical Care Time: No
[2025-05-21 06:01] LABS: Hematocrit 47.4 % (42.0-52.0); Hemoglobin 15.6 g/dL (14.1-18.0); Immature Granulocytes % 0.2 %; Mean Corpuscular HGB Conc 32.9 g/dL (31.8-35.4); Mean Corpuscular Hemoglobin 30.4 pg (27.0-31.2); Mean Corpuscular Volume 92.4 fl (80-94); Nucleated Red Blood Cells % 0 %; Platelet Count 256 K/mm3 (142-424); Red Blood Count 5.13 M/mm3 (4.60-6.20); Red Cell Distribution Width-SD 44.3 fL; White Blood Count 8.9 K/mm3 (4.8-10.8)
[2025-05-21 06:07] LABS: Alanine Aminotransferase 29 U/L (12-78); Albumin Level 4.1 g/dl (3.5-5.0); Albumin/Globulin Ratio 1.4 (1.1-1.8); Alkaline Phosphatase 66 U/L (38-126); Anion Gap 11.1 mEq/L (5-15); Aspartate Amino Transferase 24 U/L (17-59); Bilirubin,Total 0.5 mg/dl (0.2-1.3); Blood Urea Nitrogen 13 mg/dl (9-20); Calcium 8.7 mg/dl (8.4-10.2); Carbon Dioxide 23 mmol/L (22.0-30.0); Chloride 109 mmol/L (98-107); Creatinine Clearance Estimated 141 mL/min (50-200); Creatinine,Serum 0.90 mg/dl (0.66-1.25); Estimated Glomerular Filt Rate 93 ml/min (>60); GFR (African American) 112 ML/MIN (>60); Globulin 2.9 g/dL (1.3-3.2); Glucose 109 mg/dl (74-100); INR 1.03 (0.9-1.1); Potassium 4.1 mmoL/L (3.5-5.1); Prothrombin Time 11.4 seconds (10.1-12.5); Sodium 139 mmol/L (136-145); Total Protein,Serum 7.0 g/dl (6.3-8.2)
[2025-05-21] MEDS: SODIUM CHLORIDE 0.9% 10ML SYR (RAD ONLY) 10 ML IV (06:49)
[2025-05-21] MEDS: IOPAMIDOL-370 (76%);100ML BOTTLE 75 ML IV (06:49)
[2025-05-21 07:39] LABS: Microscopic, Urine URINE MICROSCOPIC (MICROSCOPIC)
[2025-05-21 07:44] LABS: Bilirubin,Urine Negative (Negative); Color,Urine YELLOW (Yellow); Glucose,Urine (UA) Negative (Negative); Ketones,Urine Negative (Negative); Leukocyte Esterase,Urine Negative (Negative); PH,Urine 6.5 (5.0-8.5); Protein,Urine Negative (Negative); Specific Gravity, Urine 1.010 (1.005-1.030); Urobilinogen,Urine 0.2 EU/dl (0.2)
--- NOTE | 2025-05-21 07:50 | US_ITS ---
FINAL REPORT TECHNIQUE: Sonographic images of the testicles and scrotum were obtained in the longitudinal and transverse planes. CLINICAL HISTORY: Right groin/testicular pain x2days FINDINGS: The right testicle measures 2.5 x 3.4 x 1.9 centimeters. There is no intratesticular mass. The epididymis is within normal limits. No extratesticular mass is identified. There may be a small right varicocele. The left testicle measures 2.4 x 3.7 x 2.1 centimeters. There is no intratesticular mass. The epididymis is within normal limits. No extratesticular mass is identified. There is a left varicocele. Color imaging reveals no evidence of testicular torsion. IMPRESSION: No evidence of intratesticular mass or testicular torsion. Bilateral varicoceles. Reviewed, Interpreted and Dictated by Mary Jo Partida MD Transcribed by Clarissa Shaikh Authenticated and [facility]
[2025-05-21 08:35] LABS: WBC,Urine Occasional #/hpf (0-3)
[2025-05-21 08:52] LABS: Hepatitis C Ab Qual. W/ RFX NEGATIVE (Negative)
--- NOTE | 2025-05-21 09:27 | PC.NURSE ---
I called radiology to inquire about the read on the pts US. She states the radiologist is locked in and reading the scan.
== END 2025-05-21 10:17 | disposition home or self-care (01) ==
PROVIDERS: Emergency Medicine; Emergency Provider Student in an Organized Health Care Education/Training Program; PCP Nurse Practitioner
DX: R10.31 Right lower quadrant pain (principal); I86.1 Scrotal varices
CPT/HCPCS: 74177; 76870; 80053; 81001; 85025; 85610; 86803; 87389; 87491; 87591; 87661; 99284; Q9967